=== PATIENT | male | born 1945 | race Caucasian/White ===

== ENCOUNTER 2020-09-02 12:28 | Day surgery (SDC) | payer OTHER, SELFPAY ==
--- NOTE | 2020-09-01 14:07 | HO.ANESPROP2 ---
Documented by User: Marcela Jones 09/01/20 14:29 HPI - Anesthesia Eval Consult details Narrative: 74yo M for Colonoscopy [facility] Past Medical History Medical History (Updated 09/01/20 @ 13:30 by Stephanie Morales, RN) Arthritis H/O paroxysmal supraventricular tachycardia HTN (hypertension) Hyperlipemia Marfan syndrome Surgical History Surgical History (Updated 09/01/20 @ 13:30 by Stephanie Morales, RN) Hx of colonoscopy Social History Social History Smoking Status: Former smoker Use of substances other than those prescribed or required for medical reasons: No Advance Directives: No Meds Allergies Allergy/AdvReac Type Severity Reaction Status Date / Time N.K.D.A. Allergy Unknown Uncoded 03/12/20 00:00 Home Medications Medication Instructions Recorded Confirmed Type amlodipine 09/01/20 09/01/20 History aspirin 09/01/20 History losartan 09/01/20 History simvastatin 09/01/20 History Exam Exam Date and Time: September 01, 2020 1407 Pertinent Lab Results Pertinent Lab Results: Laboratory Tests 05/27/20 05/27/20 13:27 13:27 WBC 6.4 Hgb 14.1 Hct 40.1 L Plt Count 200 Sodium 142 Potassium 3.9 Chloride 106 BUN 15 Creatinine 1.12 Narrative Narrative: Echo 2018: LV sys function is normal. EF 55-60%. mild calcification of AV. Mild MAC. Mild TR. No significant change prior to 2016. EKG 03/2020: NSR with PAC's, nonspecific ST changes Assessment and Plan Assessment Anesthesia Assessment: Chart Reviewed Documented by User: Debra Barriga 09/02/20 13:42 [facility] Past Medical History Medical History (Updated 09/01/20 @ 13:30 by Stephanie Morales RN) Arthritis H/O paroxysmal supraventricular tachycardia HTN (hypertension) Hyperlipemia Marfan syndrome Surgical History Surgical History (Updated 09/01/20 @ 13:30 by Stephanie Morales RN) Hx of colonoscopy Social History Social History Smoking Status: Former smoker Use of substances other than those prescribed or required for medical reasons: No Advance Directives: No Meds Allergies Allergy/AdvReac Type Severity Reaction Status Date / Time N.K.D.A. Allergy Unknown Uncoded 03/12/20 00:00 Home Medications Medication Instructions Recorded Confirmed Type amlodipine 09/01/20 09/01/20 History aspirin 09/01/20 History losartan 09/01/20 History simvastatin 09/01/20 History Exam Airway Mallampati Class: II (Left upper multipe implants) TM Dist: >3cm Neck ROM: Full Heart: RRR Lungs: CTA BL Assessment and Plan Assessment Anesthesia Assessment: Anesthesia Plan Discussed and Chart Reviewed Final Anesthetic Review NPO: Yes ASA Class: II Final Preanesthetic Review: Meds/Allgs Chart Reviewed and Consent Obtained/Reviewed Patient Risk: Intermediate Procedure Risk: Intermediate Anesthetic Plan Anesthetic Plan: MAC: Disposition: Standard PACU
[2020-09-02 12:43] VITALS: BMI 30.2
[2020-09-02 13:00] VITALS: BP 128/69; PULSE 83; RESP 18; TEMP 37.2; O2SAT 97
[2020-09-02] MEDS: Lactated Ringers 1,000 ML 100 ML IVCONT (13:13)
--- NOTE | 2020-09-02 14:15 | PM.OP ---
Brief Operative Note Date of procedure: 09/02/20 Pre-op diagnosis: screening Post-op diagnosis: other (coln polyps) Procedure: colonoscopy Surgeon: Fransisco Herrera Anesthesia: MAC Estimated blood loss (mL): 2 Pathology: other (polyps) Condition: stable Disposition: PACU
[2020-09-02 14:18] VITALS: BP 109/63; PULSE 62; RESP 16; TEMP 36.3; O2SAT 94
[2020-09-02 14:33] VITALS: BP 116/64; PULSE 56; RESP 18; O2SAT 97
--- NOTE | 2020-09-02 15:08 | HO.POSTANES ---
Post Anesthesia Evaluation Post Anesthesia Evaluation Vital Signs: Vital Signs Temp Pulse Resp BP Pulse Ox 09/02/20 14:33 97.4 F 56 18 116/64 97 09/02/20 14:18 97.4 F 62 16 109/63 94 09/02/20 13:00 98.9 F 83 18 128/69 97 Anesthesia: Monitored Mental Status: Awake Pain Control: Satisfactory Nausea/Vomiting: None Hydration: Adequate Anesthesia-Related Issues: No Anes. Related Issues
--- NOTE | 2020-09-03 00:57 | OP_ITS ---
SURGEON: Fransisco Herrera MD INDICATIONS: Colon cancer screening and prior history of adenomatous colon polyps. PREOPERATIVE DIAGNOSIS: POSTOPERATIVE DIAGNOSIS: PROCEDURE PERFORMED: Colonoscopy to the terminal ileum with biopsy and snare polypectomy. ESTIMATED BLOOD LOSS: COMPLICATIONS: ANESTHESIA: ASSISTANTS: SPECIMENS: MEDICATIONS: Monitored anesthesia care. DESCRIPTION OF PROCEDURE: History and physical performed. The risks and benefits of the procedure were explained to the patient. Informed consent was obtained. The patient was placed in the left lateral decubitus position. A digital rectal exam was performed and was found to be normal. The Olympus pediatric video colonoscope was introduced into the rectum and advanced to the cecum without difficulty. The cecum was identified by transillumination, palpation, and identification of ileocecal valve. Examination was performed. The scope was removed. He tolerated the procedure well and was taken to recovery area in stable condition. FINDINGS: The terminal ileum was examined and appeared normal. The visualized colonic mucosa was within normal limits without evidence of masses or ulcers. The quality of the prep was good. At 85 cm, a less than 5 mm polyp was removed with biopsy forceps. At 70 cm were two 6 mm polyps, which were snared and recovered via suction. No other polyps were identified. There was mild diverticulosis scattered throughout the colon. Retroflexed examination showed small internal hemorrhoids. IMPRESSION: Colon polyps. RECOMMENDATION: Follow up the biopsy results. MD RAMA Romano/TAMMIE / [id number] MTDD
== END 2020-09-02 15:20 | disposition home or self-care (01) ==
PROVIDERS: PCP Internal Medicine; Visit Provider Internal Medicine Gastroenterology
PROC: 0DJD8ZZ Inspection of Lower Intestinal Tract, Via Natural or Artificial Opening Endoscopic (ICD-10-PCS; CPT 45378; principal; 2020-09-02 13:40)
DX: Z12.11 Encounter for screening for malignant neoplasm of colon (principal); Z86.010 Personal history of colon polyps; D12.4 Benign neoplasm of descending colon; K57.30 Diverticulosis of large intestine without perforation or abscess without bleeding; K64.8 Other hemorrhoids; I10 Essential (primary) hypertension; E78.00 Pure hypercholesterolemia, unspecified; Q87.40 Marfan syndrome, unspecified; Z87.891 Personal history of nicotine dependence; Z79.82 Long term (current) use of aspirin; Z79.899 Other long term (current) drug therapy
CPT/HCPCS: 45385; 45380; 88305

== ENCOUNTER → 2021-04-13 13:44 | Outpatient (BNVA) | payer OTHER, SELFPAY | PROVIDERS: PCP Internal Medicine; Visit Provider Internal Medicine Cardiovascular Disease | DX: I47.1 Supraventricular tachycardia (principal); I10 Essential (primary) hypertension | CPT/HCPCS: 93005; 99212 ==

== ENCOUNTER → 2022-04-05 13:01 | Outpatient (BNVA) | payer MEDICARE, OTHER, SELFPAY | PROVIDERS: PCP Internal Medicine; Referring Provider Internal Medicine; Visit Provider Internal Medicine Cardiovascular Disease | DX: I47.1 Supraventricular tachycardia (principal); I10 Essential (primary) hypertension | CPT/HCPCS: 93005; 99212 ==

== ENCOUNTER → 2023-04-04 11:46 | Outpatient (BNVA) | payer MEDICARE, SELFPAY | PROVIDERS: PCP Internal Medicine; Referring Provider Internal Medicine; Visit Provider Internal Medicine Cardiovascular Disease | DX: I47.1 Supraventricular tachycardia (principal); I10 Essential (primary) hypertension; Z79.899 Other long term (current) drug therapy | CPT/HCPCS: 93005; 99212 ==

== ENCOUNTER → 2023-06-01 14:36 | Outpatient (REF) | payer MEDICARE, SELFPAY ==
--- NOTE | 2023-06-01 14:39 | CA_ITS ---
Transthoracic Echocardiogram Patient (Last, First, Middle): Bryson Hayward, Gender: Male Date of : 1945 Age: 77 Procedure Date: 06/01/2023 Procedure Type: Transthoracic Echocardiogram Location: OP Height: 190. cm Weight: 112.49 kg BSA: 2.40 m2 Heart Rate: 61 bpm BP: 125 / 80 mmHg Medical Lead: THONG Witt MD: Khanh Saravia MD Scrap Baller: Khanh Saravia MD Symptoms: I47.1 - Supraventricular tachycardia Study Quality: Adequate ECG Rhythm: Frequent atrial premature beats Conclusions: - 1. Normal LV systolic function with LVEF of 55-60% with mild LVH with grade 1 diastolic dysfunction 2. Normal cardiac valvular Dopplers 3. Mildly to moderately dilated ascending aorta at 4.4 cm 4. No pericardial effusion Findings Left Ventricle Normal left ventricular size and systolic function. There is mildly increased left ventricular wall thickness. The visually estimated ejection fraction is between 55-60%. Spectral Doppler is indicative of an impaired relaxation filling pattern. E/E prime ratio is <8, consistent with normal filling pressures. Evidence suggests grade I (mild) diastolic dysfunction. Peak GLS is -18.4%, within normal limits. Right Ventricle Normal right ventricular cavity size and systolic function. Atria The left atrium is likely dilated. Interatrial shunt cannot be excluded. The right atrium is normal in size. Aortic Valve There is mild calcification of the aortic valve. There is no aortic valve stenosis. There is no aortic valve regurgitation. Mitral Valve Likely normal mitral valve structure and function. There is trace mitral valve regurgitation. There is no mitral valve stenosis. Pulmonic Valve The pulmonic valve was not well visualized. Tricuspid Valve Likely normal tricuspid valve structure and function. There is trace tricuspid valve regurgitation. The right ventricular systolic pressure is normal. The right ventricular systolic pressure is 13 mmHg. Normal right atrial pressure. There is no evidence of pulmonary hypertension. Great Vessels The pulmonary artery was not well visualized. Venous The inferior vena cava is normal in size and collapses greater than 50% with inspiration. Pericardium/Pleural There is no evidence of pericardial effusion. Measurements 2D Linear Measurements IVSd: 1.39 0.6-0.9/0.6-1.0 cm LVIDd: 4.14 3.9-5.3/4.2-5.9 cm LVIDd Index: 1.73 2.4-3.2/2.2-3.1 cm/m2 LVIDs: 2.89 2.0-3.6 cm LVPWd: 1.22 0.7-1.1 cm LA Diam: 4.30 2.7-3.8/3.0-4.0 cm LAIDs Index: 1.79 1.5-2.3 cm/m2 LV Mass: 246.05 67-162/88-224 g LV Mass Index: 102.52 43-95/49-115 g/m2 LVOT Diam: 2.20 3.0+(-)1.3 cm 2D Systolic Function EF 4C: 53.60 >55% EF 2C: 63.30 >55% EF BiP: 58.80 >55% Mitral Valve MV Pk E: 0.42 MV PK A: 0.69 MV Decel Time: 421.00 E/A: 0.60 E'Lateral: 7.18 E'Medial: 5.44 E/E' Med: 7.80 E/E' Lat: 5.90 PHT: 123.00 MVA PHT: 1.79 Decel [place]: 1.12 Aortic Valve AoV Pk Augie: 1.13 AoV Mn Augie: 0.83 AoV VTI: 0.28 AoV Pk Grad: 5.00 Aov Mn Grad: 3.00 IVÁN Cont.VTI: 3.18 LVOT LVOT Pk Augie: 0.99 LVOT Mn Augie: 0.68 LVOT VTI: 0.23 LVOT Pk Grad: 4.00 LVOT Mn Grad: 2.00 LVOT Diam: 2.20 LVOT Area: 3.80 Diastolic Function MV Pk E: 0.42 MV Pk A: 0.69 E/A: 0.60 E'Medial: 5.44 E/E' Med: 7.80 E' Laterial: 7.18 E/E' Lat: 5.90 Right Ventricle TAPSE (mm): 16.60 TVS' Augie: 9.79 Tricuspid Valve TR Pk Augie: 1.60 TR Pk Grad: 10.00 RA Press: 3.00 RVSP: 13.00 Great Vessels Aorta Sinus of Valsalva: 4.20 2.0-3.5 cm Ao Asc: 4.40 2.1-3.4 cm Pulmonary Valve PV Pk Augie: 0.97 Peak PV Grad: 4.00 Updated in Other Vendor System with Status of Final Khanh Saravia MD electronically signed on 06/02/2023 11:29:19 AM with status of Final
== END ==
LOC: HO.CARD 14:36
PROVIDERS: PCP Internal Medicine; Visit Provider Internal Medicine Cardiovascular Disease
DX: I47.1 Supraventricular tachycardia (principal)
CPT/HCPCS: 93306; 93356

== ENCOUNTER → 2023-06-01 14:39 | Outpatient (BNV) | payer MEDICARE, SELFPAY | PROVIDERS: PCP Internal Medicine; Visit Provider Internal Medicine Cardiovascular Disease | DX: I47.1 Supraventricular tachycardia (principal); I51.9 Heart disease, unspecified | CPT/HCPCS: 93306 ==

== ENCOUNTER 2024-03-26 12:03 | Outpatient (AMB) | payer MEDICARE, SELFPAY ==
--- NOTE | 2024-03-26 12:36 | A.OFFVIS_ITS ---
Vital Signs 03/26/24 12:42 Height 6 ft 4 in Weight 249 lb 1.957 oz BMI 30.3 BP 110/70 Blood Pressure Location Lt brachial Position Sitting Pulse 51 Intake Visit Reasons: 1 yr f/up Intake Note: 1 year follow-up with ekg feeling good Form Presser Required: No Allergies N.K.D.A. Allergy (Unknown, Uncoded 03/12/20 00:00) Medication List - Last Reconciled 03/26/24 by Khanh Saravia MD amlodipine 10 mg PO DAILY atorvastatin 20 mg PO BEDTIME cholecalciferol (vitamin D3) 25 mcg PO DAILY losartan-hydrochlorothiazide 100-12.5 mg 1 tab PO DAILY metoprolol succinate ER 50 mg PO BID HPI Comments Details: Bryson comes for follow-up. He has no new symptoms. Echocardiogram done last May showed mildly to moderately dilated ascending aorta 4.4 cm. Strong family history of aortic dissection with father dying age of 45, 1 of his uncle dying in his 60s and his son dying in the 20s from aortic dissection. He has diagnose with Marfan syndrome. He is taking all his medications. Denies any cardiac symptoms whatsoever. Denies any symptoms of prolonged palpitation irregular heartbeat. Denies any symptoms exertional chest pain or shortness of breath. No orthopnea, PND, leg edema. He takes all his medications. Blood pressure at home usually in the 110 systolic range. [facility] Medical History Ascending aortic aneurysm Paroxysmal atrial tachycardia Marfan syndrome Hyperlipemia Arthritis HTN (hypertension) Surgical History Hx of colonoscopy Family History Father No problems noted. Mother No problems noted. Review of Systems Const Denies chills, Denies fatigue, Denies fever(s), Denies frequent falls, Denies weakness, Denies weight gain and Denies weight loss ENT Denies dizziness Card Denies chest pain, Denies leg edema, Denies lightheadedness, Denies palpitations, Denies dyspnea, Denies dyspnea on exertion, Denies orthopnea and Denies other (loss of consciousness) Resp Denies cough, Denies dyspnea and Denies dyspnea on exertion GI Denies hematochezia and Denies change in stool character Musc Denies abnormal gait, Denies muscle weakness, Denies numbness, Denies radiating pain into limb and Denies tingling Neuro Denies abnormal gait, Denies dizziness, Denies frequent falls, Denies numbness, Denies tingling and Denies weakness Endo Denies fatigue and Denies palpitations Physical Exam Vital Signs: Last Vital Signs Pulse 51 03/26/24 12:42 BP 110/70 03/26/24 12:42 BMI result Body Mass Index 30.3 Const General: cooperative, comfortable, no acute distress, alert and awake Nutritional Appearance: overweight Orientation/consciousness: patient oriented x3 Limitations: no limitations Neck Neck: Yes trachea midline, Yes supple and Yes no JVD Resp Effort & Inspection: normal respiratory effort Auscultation: clear to auscultation bilaterally Cardio Jugular venous distension: no JVD Palpation: normal PMI Rate: regular rate Rhythm: regular rhythm Heart sounds: S1 normal heart sound present and S2 normal heart sound present GI Auscultation: normal bowel sounds Skin General skin exam: no rashes or lesions noted Neuro General: patient oriented x3 and no focal motor deficits Extrem General: Yes no clubbing, cyanosis or edema Psych Appearance: grossly normal Office Procedures EKG Details: EKG shows sinus bradycardia with sinus arrhythmia with first-degree AV block otherwise normal EKG [id number], Complete Assessment & Plan Assessment & Plan (1) Ascending aortic aneurysm: Code(s): I71.21 - Aneurysm of the ascending aorta, without rupture Category: Medical Plan: Patient [id number] enlargement of ascending aorta consistent with the ascending aortic aneurysm at 4.4 cm. He does have Marfan syndrome and has strong family history for aortic dissection. His surgical threshold is at 5 cm. This was discussed with him. Follow-up echocardiogram in 3 months time. Would like to see him in the clinic after that. We discussed about management of ascending aortic aneurysm with medical therapy with aggressive blood pressure control which is currently well optimized. See below also advised to avoid sudden strenuous isometric exercise. Advised to seek emergency care if he has sudden significant chest pain. (2) Paroxysmal atrial tachycardia: Code(s): I47.1 - Supraventricular tachycardia Category: Medical Plan: Paroxysmal atrial tachycardia which has remained suppressed on metoprolol therapy. Continue the same. Importance of metoprolol therapy was discussed. Avoidance of stimulants was discussed advised to call me with any new symptoms. (3) HTN (hypertension): Code(s): I10 - Essential (primary) hypertension Category: Medical Plan: Longstanding hypertension with mild hypertensive heart disease without clinical congestive heart failure. Blood pressure is very well optimized on current regimen. Importance of good blood pressure control was discussed. He understands. Advised to monitor blood pressure at home maintain a log. Low- salt diet was discussed. Continue maintain activity level. Will follow up in the clinic in 3 months time, sooner p.r.n.. Thank you for allowing me to partake in his care Orders: Orders CA echo transthoracic complete 10 Weeks I71.21 - Aneurysm of the ascending aorta, without rupture Coding Level of Care Code Est Pt Level 4 (62472) Diagnoses Ascending aortic aneurysm I71.21 Paroxysmal atrial tachycardia I47.1 HTN (hypertension) I10 CPT Codes EKG - CPT: 09972-[id number], Complete ([id number])
[2024-03-26 12:42] VITALS: BP 110/70; PULSE 51; BMI 30.3
== END 2024-03-26 13:17 | disposition home or self-care (01) ==
PROVIDERS: Visit Provider Internal Medicine Cardiovascular Disease
DX: I71.21 Aneurysm of the ascending aorta, without rupture (principal); I47.10 Supraventricular tachycardia, unspecified; I10 Essential (primary) hypertension
CPT/HCPCS: 93010; 99214

== ENCOUNTER → 2024-03-26 12:03 | Outpatient (BNVA) | payer MEDICARE, SELFPAY | PROVIDERS: Visit Provider Internal Medicine Cardiovascular Disease | DX: I71.21 Aneurysm of the ascending aorta, without rupture (principal); I10 Essential (primary) hypertension; I47.19 Other supraventricular tachycardia | CPT/HCPCS: 93005; 99212 ==

== ENCOUNTER → 2024-06-04 07:38 | Outpatient (REF) | payer MEDICARE, SELFPAY ==
--- NOTE | 2024-06-04 07:42 | CA_ITS ---
Transthoracic Echocardiogram Patient (Last, First, Middle): Bryson Hayward, Gender: Male Date of : 1945 Age: 78 Procedure Date: 06/04/2024 Procedure Type: Transthoracic Echocardiogram Location: OP Height: 193.04 cm Weight: 112.49 kg BSA: 2.43 m2 Heart Rate: 68 bpm BP: 128 / 72 mmHg Drum Sander Setter: SB Referring MD: Khanh Saravia MD Symptoms: I71.21 - Aneurysm of the ascending aorta, without rupture Study Quality: Adequate ECG Rhythm: Sinus w occasional PVC Conclusions: - The left ventricular systolic function is normal. The calculated ejection fraction is 63% by biplane method. - Moderately increased right ventricular cavity size. - The right atrium is severely dilated. - No obvious valvular pathology seen on this study. - There is mild dilatation of the ascending aorta measuring 4.30 cm. Findings Left Ventricle Normal left ventricular cavity size. There is normal left ventricular wall thickness. The left ventricular systolic function is normal. The calculated ejection fraction is 63% by biplane method. There is no evidence of regional wall motion abnormalities. Diastolic function is normal for age. Right Ventricle Moderately increased right ventricular cavity size. There is normal right ventricular systolic function. Atria The left atrium is normal in size. The right atrium is severely dilated. Aortic Valve There is a normal trileaflet aortic valve. There is no aortic valve stenosis. There is no aortic valve regurgitation. Mitral Valve The mitral valve appears normal. There is trace mitral valve regurgitation. There is no mitral valve stenosis. Pulmonic Valve The pulmonic valve is likely normal. Tricuspid Valve Normal tricuspid valve structure. There is mild tricuspid valve regurgitation. There is no evidence of pulmonary hypertension. Great Vessels The aortic arch is normal in size. There is mild dilatation of the ascending aorta measuring 4.30 cm. Venous The inferior vena cava was not well visualized. Pericardium/Pleural There is no evidence of pericardial effusion. Prior Study Comparison Changes noted compared to prior study dated: 06/01/2023. see comment on right atrium and right ventricle. Recommendations, Care & Conclusions No obvious valvular pathology seen on this study. Measurements 2D Linear Measurements IVSd: 0.92 0.6-0.9/0.6-1.0 cm LVIDd: 5.58 3.9-5.3/4.2-5.9 cm LVIDd Index: 2.30 2.4-3.2/2.2-3.1 cm/m2 LVIDs: 4.03 2.0-3.6 cm LVPWd: 0.90 0.7-1.1 cm LA Diam: 4.50 2.7-3.8/3.0-4.0 cm LAIDs Index: 1.85 1.5-2.3 cm/m2 LV Mass: 240.91 67-162/88-224 g LV Mass Index: 99.14 43-95/49-115 g/m2 LVOT Diam: 2.40 3.0+(-)1.3 cm 2D Systolic Function EF 4C: 63.50 >55% EF 2C: 64.40 >55% EF BiP: 63.30 >55% Mitral Valve MV Pk E: 0.57 MV PK A: 0.58 MV Decel Time: 426.00 E/A: 1.00 E'Lateral: 10.00 E'Medial: 6.31 E/E' Med: 9.00 E/E' Lat: 5.70 PHT: 125.00 MVA PHT: 1.76 Decel Pepin: 1.34 Aortic Valve AoV Pk Augie: 1.16 AoV Pk Grad: 5.00 IVÁN: 3.75 LVOT LVOT Pk Augie: 0.92 LVOT Mn Augie: 0.64 LVOT VTI: 0.22 LVOT Pk Grad: 3.00 LVOT Mn Grad: 2.00 LVOT Diam: 2.40 LVOT Area: 4.52 Diastolic Function MV Pk E: 0.57 MV Pk A: 0.58 E/A: 1.00 E'Medial: 6.31 E/E' Med: 9.00 E' Laterial: 10.00 E/E' Lat: 5.70 Right Ventricle TAPSE (mm): 27.50 TVS' Augie: 12.70 Tricuspid Valve TR Pk Augie: 2.42 TR Pk Grad: 23.00 RA Press: 3.00 RVSP: 26.00 Great Vessels Aorta Sinus of Valsalva: 4.10 2.0-3.5 cm Ao Asc: 4.30 2.1-3.4 cm Ao Arch: 3.20 Pulmonary Valve PV Pk Augie: 0.81 Peak PV Grad: 3.00 Updated in Other Vendor System with Status of Final Saran Lowry MD electronically signed on 06/04/2024 3:36:19 PM with status of Final
== END ==
LOC: HO.CARD 07:38
PROVIDERS: PCP Internal Medicine; Visit Provider Internal Medicine Cardiovascular Disease
DX: I71.21 Aneurysm of the ascending aorta, without rupture (principal)
CPT/HCPCS: 93306

== ENCOUNTER → 2024-06-04 07:42 | Outpatient (BNV) | payer MEDICARE, SELFPAY | PROVIDERS: PCP Internal Medicine; Visit Provider Internal Medicine | DX: I36.1 Nonrheumatic tricuspid (valve) insufficiency (principal); I71.21 Aneurysm of the ascending aorta, without rupture | CPT/HCPCS: 93306 ==

== ENCOUNTER 2024-06-25 12:45 | Outpatient (AMB) | payer MEDICARE, SELFPAY ==
[2024-06-25 12:50] VITALS: BP 130/66; PULSE 57; BMI 30.4
--- NOTE | 2024-06-25 12:50 | A.OFFVIS_ITS ---
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 Allergy (Unknown, Uncoded 03/12/20 00:00) Medication List - Last Reconciled 06/25/24 by Khanh Saravia MD amlodipine 10 mg PO DAILY atorvastatin 20 mg PO BEDTIME cholecalciferol (vitamin D3) 25 mcg PO DAILY losartan-hydrochlorothiazide 100-12.5 mg 1 tab PO DAILY metoprolol succinate ER 50 mg PO BID HPI Comments Details: Bryson comes for follow-up. He has been doing very well from cardiac perspective. No cardiac symptoms. Denies any prolonged palpitation irregular heartbeat. No exertional chest pain. Recent echocardiogram shows stable ascending aortic aneurysm at 4.3 cm. His blood pressure is generally well controlled and measured at home all below systolic 130. Denies any shortness of breath, orthopnea, PND. No lightheadedness, syncope. Takes all his medications regularly. [facility] Medical History Failed total knee, right Ascending aortic aneurysm Paroxysmal atrial tachycardia Marfan syndrome Hyperlipemia Arthritis HTN (hypertension) Surgical History Hx of colonoscopy Family History Father No problems noted. Mother No problems noted. Review of Systems Const Denies chills, Denies fatigue, Denies fever(s), Denies frequent falls, Denies weakness, Denies weight gain and Denies weight loss ENT Denies dizziness Card Denies chest pain, Denies leg edema, Denies lightheadedness, Denies palpitations, Denies dyspnea and Denies dyspnea on exertion Resp Denies cough, Denies dyspnea and Denies dyspnea on exertion GI Denies hematochezia Musc Denies abnormal gait, Denies muscle weakness, Denies numbness, Denies radiating pain into limb and Denies tingling Neuro Denies abnormal gait, Denies dizziness, Denies frequent falls, Denies numbness, Denies tingling and Denies weakness Endo Denies fatigue and Denies palpitations Physical Exam Vital Signs: Last Vital Signs Pulse 57 06/25/24 12:50 BP 130/66 06/25/24 12:50 BMI result Body Mass Index 30.4 Const General: cooperative, comfortable, no acute distress, alert and awake Nutritional Appearance: overweight Orientation/consciousness: patient oriented x3 Limitations: no limitations Neck Neck: Yes trachea midline, Yes supple and Yes no JVD Resp Effort & Inspection: normal respiratory effort Auscultation: clear to auscultation bilaterally Cardio Jugular venous distension: no JVD Palpation: normal PMI Rate: regular rate Rhythm: regular rhythm Heart sounds: S1 normal heart sound present and S2 normal heart sound present GI Auscultation: normal bowel sounds Skin General skin exam: no rashes or lesions noted Neuro General: patient oriented x3 and no focal motor deficits Extrem General: Yes no clubbing, cyanosis or edema Psych Appearance: grossly normal Office Procedures EKG Details: EKG shows sinus bradycardia first-degree AV block at 57 beats per minute [id number], Complete Assessment & Plan Assessment & Plan (1) Ascending aortic aneurysm: Code(s): I71.21 - Aneurysm of the ascending aorta, without rupture Category: Medical Plan: Ascending aortic aneurysm which has remained stable with [id number] enlargement related to underlying Marfan syndrome. Patient has strong family history of aortic dissection but has done well over time. We discussed management of ascending aortic aneurysm and Marfan syndrome. Will continue to monitor annually by echocardiogram. Thresholds size for repair will be 5 cm. Continue aggressive blood pressure control. Currently well optimized on current therapy. Importance of good blood pressure control was discussed. Statin therapy can be continued. Advised to avoid sudden strenuous isometric exercise. Advised to seek emergency care for sudden-onset severe chest pain. (2) Paroxysmal atrial tachycardia: Code(s): I47.1 - Supraventricular tachycardia Category: Medical Plan: Paroxysmal atrial tachycardia as well as PACs and PVCs. No symptoms related to it. Overall controlled on metoprolol therapy. Avoidance of stimulants was discussed. No other pharmacotherapy is necessary at this point time. Will follow up in the clinic in 1 year's time after an echocardiogram. Thank you for allowing me to partake in his care Coding Level of Care Code Est Pt Level 4 (44634) Diagnoses Ascending aortic aneurysm I71.21 Paroxysmal atrial tachycardia I47.1 CPT Codes EKG - CPT: 80545-[id number], Complete ([id number])
== END 2024-06-25 13:22 | disposition home or self-care (01) ==
PROVIDERS: PCP Internal Medicine; Visit Provider Internal Medicine Cardiovascular Disease
DX: I71.21 Aneurysm of the ascending aorta, without rupture (principal); I47.10 Supraventricular tachycardia, unspecified
CPT/HCPCS: 93010; 99214

== ENCOUNTER → 2024-06-25 12:45 | Outpatient (BNVA) | payer MEDICARE, SELFPAY | PROVIDERS: PCP Internal Medicine; Visit Provider Internal Medicine Cardiovascular Disease | DX: I71.21 Aneurysm of the ascending aorta, without rupture (principal); I47.19 Other supraventricular tachycardia | CPT/HCPCS: 93005; 99212 ==

== ENCOUNTER → 2024-08-06 08:55 | Outpatient (REF) | payer MEDICARE, SELFPAY | LOC: HO.SL 08:55 | PROVIDERS: PCP Internal Medicine; Visit Provider Internal Medicine Cardiovascular Disease | DX: G47.33 Obstructive sleep apnea (adult) (pediatric) (principal); G47.39 Other sleep apnea | CPT/HCPCS: 95806 ==

== ENCOUNTER → 2024-08-06 09:11 | Outpatient (BNV) | payer MEDICARE, SELFPAY | PROVIDERS: PCP Internal Medicine; Visit Provider Internal Medicine | DX: G47.33 Obstructive sleep apnea (adult) (pediatric) (principal) | CPT/HCPCS: 95806 ==

== ENCOUNTER → 2025-06-20 07:34 | Outpatient (REF) | payer MEDICARE, SELFPAY ==
--- OUTSIDE RECORDS SUMMARY | 2025-06-20 02:36 | XMS_ITS | Continuity of Care Document ---
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 It does not include entries that were removed or entered in error. Problem Status Onset Date Problem Type Date of Resolution Comments Source Screening for malignant neoplasm of colon done (SNOMED CT 241361443567393) Active 003 Condition May 18, 2005 Entered By: MARIANNE HARLEY Comment: screening colonoscopy found diverticulosis only, 2002 [place] Allergic reaction to bee sting Active Condition [place] Allergic rhinitis * (ICD-9-CM 477.9) Active Condition [facility] Benign essential hypertension (SNOMED CT 0762856) Active Condition [place] Exposure to potentially hazardous substance Active Condition Feb 09, 2024 Entered By: SOPHIE GARZA Comment: DOREEN Screening Snomed Code connected 05/11/23 [facility] Gilbert's Disease Active Condition [facility] Hyperlipidemia (SNOMED CT 46040529) Active Condition [place] Marfan's syndrome (SNOMED CT 55488146) Active Condition Jul 28, 2010 Entered By: ELVIRA ANDRADE Comment: ECHO JUL 16: EF 60%; +LVH (Hypertensive Effect)Jul 28, 2010 Entered By: ELVIRA ANDRADE Comment: [facility] 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 [facility] Supraventricular arrhythmia Active Condition [place] Tear of medial cartilage or meniscus of knee, current (ICD-9-CM 836.0) Active Condition [place] EKG Inactive Condition 05/29/2017 Jun 08, 2 010 Entered By: ELVIRA ANDRADE Comment: EKG, NOV 2006: NSRAug 2009 Entered By: ELVIRA ANDRADE Comment: EKG, JUN 15: Sinus John [place] Impaired fasting glucose (SNOMED CT 507371919) Inactive Condition 05/29/[address] [place] [address] 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 [facility] Diagnosis: ICD-10-CM L82.1 Other seborrheic keratosis Active Diagnosis [facility] Diagnosis: ICD-10-CM Z13.89 Encounter for screening for other disorder Active Diagnosis [facility] Diagnosis: ICD-10-CM E66.9 Obesity, unspecified Active Diagnosis [place] Diagnosis: ICD-10-CM Z77.29 Contact with and exposure to other hazardous substances Active Diagnosis [facility] Medications Combined list of outpatient medications from Department of Defense and [facility] Affairs facilities.Medications provided include 1) outpatient medications from the last 15 months, and 2) patient-reported medications. Medication Details Route Status Patient Instructions Prescription Expires Prescription Number Last Dispense Date Ordering Provider Order Date Order Qty Source AMLODIPINE BESYLATE 10MG TAB TAKE ONE TABLET BY MOUTH ONCE DAILY FOR HEART/BL OOD PRESSURE . DO NOT TAKE WITH GRAPEFRU IT JUICE ORAL ACTIVE 05/21/2026 [id number] JENNIFFER HURD 2024 90 [place] AMLODIPINE BESYLATE 10MG TAB TAKE ONE TABLET BY MOUTH ONCE DAILY FOR HEART/BL OOD PRESSURE . DO NOT TAKE WITH GRAPEFRU IT JUICE ORAL DISCONT INUED 05/15/2025 [id number] 5 JENNIFFER HURD 2023 90 [place] AMLODIPINE BESYLATE 10MG TAB TAKE ONE TABLET BY MOUTH EVERY DAY ORAL ACTIVE LESIA GODWIN 2017 Sharifa RUELAS DEPT OF [facility] AMOXICILLIN TRIHYDRATE 500MG CAP TAKE FOUR CAPSULES BY MOUTH DIRECTED BY PROVIDER 1 HOUR PRIOR TO PROCEDUR E ORAL 09/19/2024 [id number] ELIOT TRIPLETT 2023 20 [place] ASPIRIN 325MG TAB,EC TAKE ONE TABLET BY MOUTH EVERY DAY ORAL ACTIVE LESIA GODWIN Manny 2017 Sharifa RUELAS DEPT OF [facility] ATORVASTATI N CA 40MG TAB TAKE ONE-HALF TABLET BY MOUTH ONCE DAILY FOR CHOLESTE ROL ORAL ACTIVE 05/21/2026 [id number] 5 JENNIFFER HURD 2024 45 [place] ATORVASTATI N CA 40MG TAB TAKE ONE-HALF TABLET BY MOUTH ONCE DAILY FOR CHOLESTE ROL ORAL DISCONT INUED 05/15/2025 [id number] 5 JENNIFFER HURD 2023 45 [place] CHOLECALCIF CAMI 25MCG (1,000UNIT) TAB TAKE ONE TABLET BY MOUTH ONCE DAILY ORAL ACTIVE JENNIFFER HURD 2020 [place] EPINEPHRINE (EQV-EPI-PE N) 0.3MG/0.3ML INJECTOR INJECT DIRECTED INTRAMUS CULARLY EVERY 5 MINUTES NEEDED FOR LIFE THREATEN ING ALLERGIC REACTION INTRAM USCULA R ACTIVE 05/21/2026 [id number] 5 JENNIFFER HURD 2024 2 [place] EPINEPHRINE (EQV-EPI-PE N) 0.3MG/0.3ML INJECTOR INJECT DIRECTED INTRAMUS CULARLY EVERY 5 MINUTES NEEDED FOR LIFE THREATEN ING ALLERGIC REACTION INTRAM USCULA R DISCONT INUED 05/15/2025 [id number] JENNIFFER HURD M 2023 2 [place] FLUTICASONE PROPIONATE 50MCG/SPRAY SOLN,NASAL, 16GM INSTILL 1 SPRAY INTO EACH NOSTRIL AT BEDTIME FOR NASAL IRRITATI ON/INFLA MMATION NASAL ACTIVE 05/21/2026 [id number] JENNIFFER HURD M 2024 1 [place] HYDROCHLORO THIAZIDE 12.5MG/LOSA RTAN POTASSIUM 100MG TAB TAKE 1 TABLET BY MOUTH ONCE DAILY ORAL ACTIVE 05/21/2026 [id number] 5 JENNIFFER HURD M 2024 90 [place] HYDROCHLORO THIAZIDE 12.5MG/LOSA RTAN POTASSIUM 100MG TAB TAKE 1 TABLET BY MOUTH ONCE DAILY ORAL DISCONT INUED 05/15/2025 [id number] JENNIFFER HURD M 2023 90 [place] LOSARTAN POTASSIUM 100MG TAB TAKE ONE TABLET BY MOUTH EVERY DAY ORAL ACTIVE SHEAR,LESIA HAEL P 2017 Sharifa RUELAS DEPT OF [facility] METOPROLOL SUCCINATE 100MG TAB,SA TAKE ONE-HALF TABLET BY MOUTH EVERY DAY ORAL ACTIVE SHEAR,LESIA HAEL P 2017 Sharifa RUELAS DEPT OF [facility] METOPROLOL SUCCINATE 50MG TAB,SA TAKE ONE TABLET BY MOUTH TWICE DAILY FOR BLOOD PRESSURE /HEART ORAL ACTIVE 05/21/2026 [id number] 5 JENNIFFER HURD M 2024 180 [place] METOPROLOL SUCCINATE 50MG TAB,SA TAKE ONE TABLET BY MOUTH TWICE DAILY FOR BLOOD PRESSURE /HEART ORAL DISCONT INUED 05/15/2025 [id number] 5 JENNIFFER HURD M 2023 180 [place] SIMVASTATIN 40MG TAB TAKE ONE TABLET BY MOUTH DAILY AT BEDTIME ORAL ACTIVE SHEAR,LESIA HAEL P 2017 Sharifa RUELAS DEPT OF [facility] SODIUM CHLORIDE 0.65% SOLN,NASAL SPRAY INSTILL 2 SPRAYS INTO EACH NOSTRIL EVERY 4 HOURS NEEDED FOR STUFFY NOSE NASAL ACTIVE 05/21/2026 [id number] JENNIFFER HURD M 2024 45 [place] TAMSULOSIN HCL 0.4MG CAP TAKE ONE CAPSULE BY MOUTH ONCE DAILY ORAL SUSPEND ED 05/21/2026 [id number] 5 JENNIFFER HURD M 2024 90 [facility] IELD TAMSULOSIN HCL 0.4MG CAP TAKE ONE CAPSULE BY MOUTH ONCE DAILY ORAL DISCONT INUED 05/07/2026 [id number] JENNIFFER HURD M 2024 90 [facility] IELD TAMSULOSIN HCL 0.4MG CAP TAKE ONE CAPSULE BY MOUTH ONCE DAILY ORAL [facility] 11/02/2025 [id number] ELIE DINH R 2023 90 [facility] IELD TAMSULOSIN HCL 0.4MG CAP TAKE ONE CAPSULE BY MOUTH AT BEDTIME FOR ENLARGED PROSTATE ORAL 08/30/2024 [id number] ELIE DINH R 2022 90 [facility] ZINC 50MG (FROM SULFATE) CAP TAKE 1 CAPSULE BY MOUTH ONCE DAILY ORAL ACTIVE JENNIFFER HURD [place] Allergies, Adverse Reactions, Alerts Combined list of allergies from Department of Defense and Veterans Affairs facilities. It does not include entries that were removed or entered in error. Substance Category Reaction Severity Reaction type Status Date Reported Comments Source BEE STINGS Propensity to adverse reaction (finding) Itching active 8 [facility] Immunizations Combined list of available immunizations from the Department of Defense and Veterans Affairs facilities. 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 Source PNEUMOCOCCAL POLYSACCHARID E PPV23 2022 [place] LEFT DELTO ID [id number] 33 complet ed [facility] COVID-19 (PFIZER), MRNA, LNP-S, BIVALENT BOOSTER, PF, 30 MCG/0.3 ML DOSE 1 2021 300 complet ed [facility] INFLUENZA, UNSPECIFIED FORMULATION 2021 88 complet ed [facility] COVID-19 (MODERNA), MRNA, LNP-S, PF, 100 MCG/0.5ML DOSE OR 50 MCG/0.25ML DOSE 3 2020 207 complet ed [facility] INFLUENZA VACCINE, QUADRIVALENT, ADJUVANTED 2020 205 complet ed [place] TDAP 2020 115 complet ed [place] COVID-19 (MODERNA), MRNA, LNP-S, PF, 100 MCG/0.5 ML DOSE 2 2020 207 complet ed [facility] COVID-19 (MODERNA), MRNA, LNP-S, PF, 100 MCG/0.5 ML DOSE 1 2020 207 complet ed [facility] ZOSTER RECOMBINANT 2 2019 187 complet ed [place] ZOSTER RECOMBINANT 1 2019 187 complet ed [place] INFLUENZA, SEASONAL, INJECTABLE 2017 141 complet ed [facility] INFLUENZA, SEASONAL, INJECTABLE 2016 141 complet ed [facility] [facility] INFLUENZA, UNSPECIFIED FORMULATION 2016 88 complet ed Sharifa RUELAS DEPT OF [facility] FLU,3 YRS (HISTORICAL) 2015 88 complet ed Site: Left Deltoid [place] ZOSTER (SHINGLES) (HISTORICAL) 2015 121 complet ed Proximal Right Arm [place] FLU,3 YRS (HISTORICAL) 2014 88 complet ed Site: Right Deltoid [place] PNEUMOCOCCAL CONJUGATE PCV 13 2014 133 complet ed [place] FLU,3 YRS (HISTORICAL) 2013 88 complet ed Site: Left Deltoid [place] FLU,3 YRS (HISTORICAL) 2012 88 complet ed Site: Right Deltoid [place] PNEUMOCOCCAL, UNSPECIFIED FORMULATION 2012 109 complet ed [place] PNEUMOCOCCAL POLYSACCHARID E PPV23 2012 33 complet ed Sharifa RUELAS DEPT [facility] FLU,3 YRS (HISTORICAL) 2011 88 complet ed Site: Left Deltoid [place] FLU,3 YRS (HISTORICAL) 2010 88 complet ed [facility] DTAP, UNSPECIFIED FORMULATION 2010 107 complet ed Site: Left Deltoid [place] FLU,3 YRS (HISTORICAL) 2008 88 complet ed [facility] FLU,3 YRS (HISTORICAL) 2007 88 complet ed Site: Left Deltoid [place] FLU,3 YRS (HISTORICAL) 2007 88 complet ed [facility] FLU,3 YRS (HISTORICAL) 2006 88 complet ed Site: Right Deltoid [place] PNEUMOCOCCAL, UNSPECIFIED FORMULATION 2006 109 complet ed [place] FLU,3 YRS (HISTORICAL) 2006 KATH MANCINI 88 complet ed [place] Results Combined list of recent chemistry, hematology and other laboratory results from Department of Defense and Veterans Affairs, ranging from 15 months to all on record, depending upon the facility. Order Name Results Value Reference Range Date Interpretation Specimen Comments Source PSA PROSTATE SPECIFIC AG [MASS/VOLUM E] IN SERUM OR PLASMA BY IMMUNOASSAY 13.4 ng/mL 0 - 4 05/13 H Specimen Type: SERUM No comment entered. Ordering Provider: FARZANEH GONZALES Report Released Date/Time: May 13, 2025 10:35 AM Reporting Lab: [facility] [address] [address] Performing Lab: [facility] [address] [address] [facility] LIPID PANEL FASTING CHOLESTEROL [MASS/VOLUM E] IN SERUM OR PLASMA 115 mg/dL 05/13 Specimen Type: SERUM No comment entered. Ordering Provider: FARZANEH GONZALES Report Released Date/Time: May 13, 2025 08:18 AM Reporting Lab: [facility] [address] [address] Performing Lab: [address] [address] [place] LIPID PANEL FASTING TRIGLYCERID E [MASS/VOLUM E] IN SERUM OR PLASMA 84 mg/dL 0 - 150 05/13 Specimen Type: SERUM No comment entered. Ordering Provider: FARZANEH GONZALES Report Released Date/Time: May 13, 2025 08:18 AM Reporting Lab: [facility] [address] [address] Performing Lab: [facility] [address] [address] [place] LIPID PANEL FASTING CHOLESTEROL IN LDL [MASS/VOLUM E] IN SERUM OR PLASMA BY CALCULATION 58 mg/dL 0 - 129 05/13 Specimen Type: SERUM No comment entered. Ordering Provider: FARZANEH GONZALES Report Released Date/Time: May 13, 2025 08:18 AM Reporting Lab: [address] [address] Performing Lab: [facility] [address] [address] [place] LIPID PANEL FASTING CHOLESTEROL .TOTAL/CHOL ESTEROL IN HDL [MASS RATIO] IN SERUM OR PLASMA 2.9 05/13 Specimen Type: SERUM No comment entered. Ordering Provider: FARZANEH GONZALES Report Released Date/Time: May 13, 2025 08:18 AM Reporting Lab: [facility] [address] Performing Lab: [facility] [address] [place] LIPID PANEL FASTING CHOLESTEROL IN HDL [MASS/VOLUM E] IN SERUM OR PLASMA 40 mg/dL 40 05/13 Specimen Type: SERUM No comment entered. Ordering Provider: FARZANEH GONZALES Report Released Date/Time: May 13, 2025 08:18 AM Reporting Lab: [facility] [address] [address] Performing Lab: [facility] [place] [place] [address] [place] BASIC METABOLIC PANEL (fasting) UREA NITROGEN [MASS/VOLUM E] IN SERUM OR PLASMA 18 mg/dL 8 - 26 05/13 Specimen Type: SERUM No comment entered. Ordering Provider: FARZANEH GONZALES Report Released Date/Time: May 13, 2025 08:18 AM Reporting Lab: [facility] [address] [address] Performing Lab: [facility] [address] [address] [place] BASIC METABOLIC PANEL (fasting) GLUCOSE [MASS/VOLUM E] IN SERUM OR PLASMA 101 mg/dL 65 - 100 05/13 H Specimen Type: SERUM No comment entered. Ordering Provider: FARZANEH GONZALES Report Released Date/Time: May 13, 2025 08:18 AM Reporting Lab: [facility] [address] [address] Performing Lab: [facility] [address] [place] BASIC METABOLIC PANEL (fasting) SODIUM [MOLES/VOLU ME] IN SERUM OR PLASMA 141 mmol/L 136 - 145 05/13 Specimen Type: SERUM No comment entered. Ordering Provider: FARZANEH GONZALES Report Released Date/Time: May 13, 2025 08:18 AM Reporting Lab: [facility] [address] [address] Performing Lab: [facility] [address] [place] BASIC METABOLIC PANEL (fasting) POTASSIUM [MOLES/VOLU ME] IN SERUM OR PLASMA 4.5 mmol/L 3.5 - 5.1 05/13 Specimen Type: SERUM No comment entered. Ordering Provider: FARZANEH GONZALES Report Released Date/Time: May 13, 2025 08:18 AM Reporting Lab: [facility] [address] [address] Performing Lab: [facility] [address] [address] [place] BASIC METABOLIC PANEL (fasting) CHLORIDE [MOLES/VOLU ME] IN SERUM OR PLASMA 105 mmol/L 98 - 107 05/13 Specimen Type: SERUM No comment entered. Ordering Provider: FARZANEH GONZALES Report Released Date/Time: May 13, 2025 08:18 AM Reporting Lab: [facility] [address] [address] Performing Lab: [address] [address] [place] BASIC METABOLIC PANEL (fasting) CARBON DIOXIDE, TOTAL [MOLES/VOLU ME] IN SERUM OR PLASMA 28 meq/L 23 - 31 05/13 Specimen Type: SERUM No comment entered. Ordering Provider: FARZANEH GONZALES Report Released Date/Time: May 13, 2025 08:18 AM Reporting Lab: [facility] [address] [address] Performing Lab: [address] [address] [place] BASIC METABOLIC PANEL (fasting) CALCIUM [MASS/VOLUM E] IN SERUM OR PLASMA 8.7 mg/dL 8.8 - 10 05/13 L Specimen Type: SERUM No comment entered. Ordering Provider: FARZANEH GONZALES Report Released Date/Time: May 13, 2025 08:18 AM Reporting Lab: [facility] [address] [address] Performing Lab: [address] [address] [place] BASIC METABOLIC PANEL (fasting) CREATININE [MASS/VOLUM E] IN SERUM OR PLASMA 1.22 mg/dL 0.72 - 1.25 05/13 Specimen Type: SERUM No comment entered. Ordering Provider: FARZANEH GONZALES Report Released Date/Time: May 13, 2025 08:18 AM Reporting Lab: [facility] [address] [address] Performing Lab: [address] [address] [place] BASIC METABOLIC PANEL (fasting) GLOMERULAR FILTRATION RATE/1.73 SQ M.PREDICTED [VOLUME RATE/AREA] IN SERUM, PLASMA OR BLOOD BY CREATININE- BASED FORMULA (CKD-EPI 2020) 60 mL/min 60 05/13 Specimen Type: SERUM No comment entered. Ordering Provider: FARZANEH GONZALES Report Released Date/Time: May 13, 2025 08:18 AM Reporting Lab: [facility] [address] [address] Performing Lab: [address] [address] [place] LIVER FUNCTION PROTEIN [MASS/VOLUM E] IN SERUM OR PLASMA 6.7 g/dL 6.4 - 8.3 05/13 Specimen Type: SERUM No comment entered. Ordering Provider: FARZANEH GONZALES Report Released Date/Time: May 13, 2025 08:18 AM Reporting Lab: [facility] [address] [address] Performing Lab: [address] [address] [place] LIVER FUNCTION ALBUMIN [MASS/VOLUM E] IN SERUM OR PLASMA BY BROMOCRESOL PURPLE (BCP) DYE BINDING METHOD 4.4 g/dL 3.2 - 4.6 05/13 Specimen Type: SERUM No comment entered. Ordering Provider: FARZANEH GONZALES Report Released Date/Time: May 13, 2025 08:18 AM Reporting Lab: [facility] [address] [address] Performing Lab: [address] [address] [place] LIVER FUNCTION ALKALINE PHOSPHATASE [ENZYMATIC ACTIVITY/VO LUME] IN SERUM OR PLASMA 72 U/L 40 - 150 05/13 Specimen Type: SERUM No comment entered. Ordering Provider: FARZANEH GONZALES Report Released Date/Time: May 13, 2025 08:18 AM Reporting Lab: [facility] [address] [address] Performing Lab: [facility] [address] [address] [place] LIVER FUNCTION ASPARTATE AMINOTRANSF ERASE [ENZYMATIC ACTIVITY/VO LUME] IN SERUM OR PLASMA BY WITH P-5'-P 15 U/L 5 - 34 05/13 Specimen Type: SERUM No comment entered. Ordering Provider: FARZANEH GONZALES Report Released Date/Time: May 13, 2025 08:18 AM Reporting Lab: [address] [address] Performing Lab: [facility] [address] [address] [place] LIVER FUNCTION ALANINE AMINOTRANSF ERASE [ENZYMATIC ACTIVITY/VO LUME] IN SERUM OR PLASMA BY WITH P-5'-P 9 U/L 0 - 55 05/13 Specimen Type: SERUM No comment entered. Ordering Provider: FARZANEH GONZALES Report Released Date/Time: May 13, 2025 08:18 AM Reporting Lab: [facility] [address] [address] Performing Lab: [facility] [address] [place] FUNCTION BILIRUBIN.T OTAL [MASS/VOLUM E] IN SERUM OR PLASMA 2.0 mg/dL 0.2 - 1.2 05/13 H Specimen Type: SERUM No comment entered. Ordering Provider: FARZANEH GONZALES Report Released Date/Time: May 13, 2025 08:18 AM Reporting Lab: [facility] [address] [address] Performing Lab: [facility] [place] [facility] [address] [address] [place] LIVER FUNCTION BILIRUBIN.D IRECT [MASS/VOLUM E] IN SERUM OR PLASMA 0.4 mg/dL 0 - 0.5 05/13 Specimen Type: SERUM No comment entered. Ordering Provider: FARZANEH GONZALES Report Released Date/Time: May 13, 2025 08:18 AM Reporting Lab: [facility] [place] [facility] [address] [address] Performing Lab: [facility] [address] [address] [place] HEMOGLOBI N A1C PANEL HEMOGLOBIN A1C/HEMOGLO BIN.TOTAL IN BLOOD 5.5 4.0 - 5.6 05/13 Specimen Type: BLOOD Comment: Values obtained from A1C measurement s can vary. For atypical A1C assays, a reported value of 7.0 could actually be between 6.72 and 7.28 if measured by a reference method. A reported value of 9.0 could actually be between 8.73 and 9.27. Ref: http://www. ngsp.org/[place] Pdata.asp Ordering Provider: FARZANEH GONZALES Report Released Date/Time: May 13, 2025 08:18 AM Reporting Lab: [facility] [address] Performing Lab: [facility] [address] [place] TSH THYROTROPIN [UNITS/VOLU ME] IN SERUM OR PLASMA BY DETECTION LIMIT <= 0.005 MIU/L 1.53 u[IU]/ mL 0.35 - 4.94 05/13 Specimen Type: SERUM No comment entered. Ordering Provider: FARZANEH GONZALES Report Released Date/Time: May 13, 2025 08:18 AM Reporting Lab: [facility] [address] [address] Performing Lab: [facility] [place] [address] [place] CBC AND DIFF (AUTO) LEUKOCYTES [#/VOLUME] IN BLOOD BY AUTOMATED COUNT 5.49 10*3/u L 4.50 - 11.00 05/13 Specimen Type: BLOOD No comment entered. Ordering Provider: FARZANEH GONZALES Report Released Date/Time: May 13, 2025 08:18 AM Reporting Lab: [facility] [place] [address] [address] Performing Lab: [facility] [place] [address] [address] [place] CBC AND DIFF (AUTO) ERYTHROCYTE S [#/VOLUME] IN BLOOD BY AUTOMATED COUNT 4.04 10*6/u L 4.23 - 5.66 05/13 L Specimen Type: BLOOD No comment entered. Ordering Provider: FARZANEH GONZALES Report Released Date/Time: May 13, 2025 08:18 AM Reporting Lab: [facility] [place] [address] [address] Performing Lab: [facility] [place] [address] [address] [place] CBC AND DIFF (AUTO) HEMOGLOBIN [MASS/VOLUM E] IN BLOOD 13.3 g/dL 12.8 - 17 05/13 Specimen Type: BLOOD No comment entered. Ordering Provider: FARZANEH GONZALES Report Released Date/Time: May 13, 2025 08:18 AM Reporting Lab: [facility] [place] [address] [address] Performing Lab: [facility] [place] [address] [address] [place] CBC AND DIFF (AUTO) HEMATOCRIT [VOLUME FRACTION] OF BLOOD BY AUTOMATED COUNT 38.3 39.2 - 50.4 05/13 L Specimen Type: BLOOD No comment entered. Ordering Provider: FARZANEH GONZALES Report Released Date/Time: May 13, 2025 08:18 AM Reporting Lab: [facility] [place] [facility] [address] [address] Performing Lab: [facility] [address] [address] [place] CBC AND DIFF (AUTO) MCV [ENTITIC VOLUME] BY AUTOMATED COUNT 94.8 fL 82 - 99 05/13 Specimen Type: BLOOD No comment entered. Ordering Provider: FARZANEH GONZALES Report Released Date/Time: May 13, 2025 08:18 AM Reporting Lab: [facility] [address] [phone] Performing Lab: [facility] [address] [place] CBC AND DIFF (AUTO) MCHC [MASS/VOLUM E] BY AUTOMATED COUNT 34.7 g/dL 30.8 - 35.1 05/13 Specimen Type: BLOOD No comment entered. Ordering Provider: FARZANEH GONZALES Report Released Date/Time: May 13, 2025 08:18 AM Reporting Lab: [facility] [address] [phone] Performing Lab: [facility] [address] [address] [place] CBC AND DIFF (AUTO) PLATELETS [#/VOLUME] IN BLOOD BY AUTOMATED COUNT 189 10*3/u L 140 - 360 05/13 Specimen Type: BLOOD No comment entered. Ordering Provider: FARZANEH GONZALES Report Released Date/Time: May 13, 2025 08:18 AM Reporting Lab: [facility] [facility] [address] [address] Performing Lab: [facility]ENTERUSE[address] [address] [place] CBC AND DIFF (AUTO) PLATELET MEAN VOLUME [ENTITIC VOLUME] IN BLOOD BY AUTOMATED COUNT 11.7 fL 9.2 - 12.4 05/13 Specimen Type: BLOOD No comment entered. Ordering Provider: FARZANEH GONZALES Report Released Date/Time: May 13, 2025 08:18 AM Reporting Lab: [facility] [place] [address] [address] Performing Lab: [facility] [place] [address] [address] [place] CBC AND DIFF (AUTO) ERYTHROCYTE DISTRIBUTIO N WIDTH [RATIO] BY AUTOMATED COUNT 12.8 12.0 - 16.0 05/13 Specimen Type: BLOOD No comment entered. Ordering Provider: FARZANEH GONZALES Report Released Date/Time: May 13, 2025 08:18 AM Reporting Lab: [facility] [place] [address] [address] Performing Lab: [facility] [place] [address] [address] [place] CBC AND DIFF (AUTO) MONOCYTES [#/VOLUME] IN BLOOD BY AUTOMATED COUNT 0.68 10*3/u L 0.30 - 1.10 05/13 Specimen Type: BLOOD No comment entered. Ordering Provider: FARZANEH GONZALES Report Released Date/Time: May 13, 2025 08:18 AM Reporting Lab: [facility] [place] [address] [address] Performing Lab: [facility] [place] [address] [address] [place] CBC AND DIFF (AUTO) MCH [ENTITIC MASS] BY AUTOMATED COUNT 32.9 pg 26.2 - 32.6 05/13 H Specimen Type: BLOOD No comment entered. Ordering Provider: FARZANEH GONZALES Report Released Date/Time: May 13, 2025 08:18 AM Reporting Lab: [facility] [place] [address] [address] Performing Lab: [facility] [place] [address] [address] [place] CBC AND DIFF (AUTO) NEUTROPHILS /100 LEUKOCYTES IN BLOOD BY AUTOMATED COUNT 55.2 43.7 - 75.8 05/13 Specimen Type: BLOOD No comment entered. Ordering Provider: FARZANEH GONZALES Report Released Date/Time: May 13, 2025 08:18 AM Reporting Lab: [facility] [place] [facility] [address] [address] Performing Lab: [facility] [place] [facility] [address] [address] [place] CBC AND DIFF (AUTO) LYMPHOCYTES /100 LEUKOCYTES IN BLOOD BY AUTOMATED COUNT 29.5 14.0 - 42.3 05/13 Specimen Type: BLOOD No comment entered. Ordering Provider: FARZANEH GONZALES Report Released Date/Time: May 13, 2025 08:18 AM Reporting Lab: [facility] [place] [facility] [address] [address] Performing Lab: [facility] [place] [address] [address] [place] CBC AND DIFF (AUTO) MONOCYTES/1 00 LEUKOCYTES IN BLOOD BY AUTOMATED COUNT 12.4 5.1 - 13.7 05/13 Specimen Type: BLOOD No comment entered. Ordering Provider: FARZANEH GONZALES Report Released Date/Time: May 13, 2025 08:18 AM Reporting Lab: [facility] [place] [facility] [address] [address] Performing Lab: [facility] [place] [facility] [address] [address] [place] CBC AND DIFF (AUTO) EOSINOPHILS /100 LEUKOCYTES IN BLOOD BY AUTOMATED COUNT 2.0 0.4 - 6.8 05/13 Specimen Type: BLOOD No comment entered. Ordering Provider: FARZANEH GONZALES Report Released Date/Time: May 13, 2025 08:18 AM Reporting Lab: [facility] [place] [facility] [address] [address] Performing Lab: [facility] [place] [address] [address] [place] CBC AND DIFF (AUTO) BASOPHILS/1 00 LEUKOCYTES IN BLOOD BY AUTOMATED COUNT 0.7 0.1 - 2.0 05/13 Specimen Type: BLOOD No comment entered. Ordering Provider: FARZANEH GONZALES Report Released Date/Time: May 13, 2025 08:18 AM Reporting Lab: [facility] [address] [address] Performing Lab: [facility] [place] [address] [place] CBC AND DIFF (AUTO) NEUTROPHILS [#/VOLUME] IN BLOOD BY AUTOMATED COUNT 3.03 10*3/u L 2.20 - 7.60 05/13 Specimen Type: BLOOD No comment entered. Ordering Provider: FARZANEH GONZALES Report Released Date/Time: May 13, 2025 08:18 AM Reporting Lab: [facility] [address] Performing Lab: [facility] [address] [address] [place] CBC AND DIFF (AUTO) LYMPHOCYTES [#/VOLUME] IN BLOOD BY AUTOMATED COUNT 1.62 10*3/u L 1.00 - 3.20 05/13 Specimen Type: BLOOD No comment entered. Ordering Provider: FARZANEH GONZALES Report Released Date/Time: May 13, 2025 08:18 AM Reporting Lab: [facility] [address] [address] Performing Lab: [facility] [address] [address] [place] CBC AND DIFF (AUTO) EOSINOPHILS [#/VOLUME] IN BLOOD BY AUTOMATED COUNT 0.11 10*3/u L 0.03 - 0.44 05/13 Specimen Type: BLOOD No comment entered. Ordering Provider: FARZAENH GONZALES Report Released Date/Time: May 13, 2025 08:18 AM Reporting Lab: [facility] [address] [address] Performing Lab: [facility] [place] [facility] [address] [address] [place] CBC AND DIFF (AUTO) BASOPHILS [#/VOLUME] IN BLOOD BY AUTOMATED COUNT 0.04 10*3/u L 0.01 - 0.13 05/13 Specimen Type: BLOOD No comment entered. Ordering Provider: FARZANEH GONZALES Report Released Date/Time: May 13, 2025 08:18 AM Reporting Lab: [facility] [place] [facility] [address] [address] Performing Lab: [facility] [address] [address] [place] CBC AND DIFF (AUTO) IMMATURE GRANULOCYTE S/100 LEUKOCYTES IN BLOOD BY AUTOMATED COUNT 0.2 0.0 - 0.7 05/13 Specimen Type: BLOOD No comment entered. Ordering Provider: FARZANEH GONZALES Report Released Date/Time: May 13, 2025 08:18 AM Reporting Lab: [facility] [place] [address] [address] Performing Lab: [facility] [place] [facility] [address] [address] [place] CBC AND DIFF (AUTO) IMMATURE GRANULOCYTE S [#/VOLUME] IN BLOOD BY AUTOMATED COUNT 0.01 10*3/u L 0.00 - 0.06 05/13 Specimen Type: BLOOD No comment entered. Ordering Provider: FARZANEH GONZALES Report Released Date/Time: May 13, 2025 08:18 AM Reporting Lab: [facility] [address] [address] Performing Lab: [facility] [address] [address] [place] CBC AND DIFF (AUTO) NUCLEATED ERYTHROCYTE S/100 LEUKOCYTES [RATIO] IN BLOOD BY AUTOMATED COUNT 0.0 0.0 - 0.0 05/13 Specimen Type: BLOOD No comment entered. Ordering Provider: FARZANEH GONZALES Report Released Date/Time: May 13, 2025 08:18 AM Reporting Lab: [facility] [place] [facility] [address] [address] Performing Lab: [facility] [address] [address] [place] CBC AND DIFF (AUTO) NUCLEATED ERYTHROCYTE S [#/VOLUME] IN BLOOD BY AUTOMATED COUNT 0.00 10*3/u L 0.00 - 0.00 05/13 Specimen Type: BLOOD No comment entered. Ordering Provider: FARZANEH GONZALES Report Released Date/Time: May 13, 2025 08:18 AM Reporting Lab: [facility] [address] [address] Performing Lab: [facility] [address] [address] [place] PSA PROSTATE SPECIFIC AG [MASS/VOLUM E] IN SERUM OR PLASMA 7.78 ng/mL 0.00 - 4.00 06/07 H Specimen Type: SERUM No comment entered. Ordering Provider: FARZANEH GONZALES Report Released Date/Time: May 14, 2024 11:57 AM Reporting Lab: [facility] [address] [address] Performing Lab: [facility] [address] [address] [place] BASIC METABOLIC PANEL (fasting) UREA NITROGEN [MASS/VOLUM E] IN SERUM OR PLASMA 17 mg/dL 7 - 25 05/06 Specimen Type: SERUM No comment entered. Ordering Provider: FARZANEH GONZALES Report Released Date/Time: May 01, 2024 10:09 AM Reporting Lab: [facility] [address] [address] Performing Lab: [facility] [address] [address] [place] BASIC METABOLIC PANEL (fasting) GLUCOSE [MASS/VOLUM E] IN SERUM OR PLASMA 97 mg/dL 65 - 100 05/06 Specimen Type: SERUM No comment entered. Ordering Provider: FARZANEH GONZALES Report Released Date/Time: May 01, 2024 10:09 AM Reporting Lab: [facility] [place] [facility] [address] [address] Performing Lab: [facility] [address] [address] [place] BASIC METABOLIC PANEL (fasting) SODIUM [MOLES/VOLU ME] IN SERUM OR PLASMA 141 mmol/L 135 - 145 05/06 Specimen Type: SERUM No comment entered. Ordering Provider: FARZANEH GONZALES Report Released Date/Time: May 01, 2024 10:09 AM Reporting Lab: [facility] [address] [address] Performing Lab: [facility] [address] [address] [place] BASIC METABOLIC PANEL (fasting) POTASSIUM [MOLES/VOLU ME] IN SERUM OR PLASMA 4.3 mmol/L 3.5 - 5.0 05/06 Specimen Type: SERUM No comment entered. Ordering Provider: FARZANEH GONZALES Report Released Date/Time: May 01, 2024 10:09 AM Reporting Lab: [facility] [place] [facility] [address] [address] Performing Lab: [facility] [address] [address] [place] BASIC METABOLIC PANEL (fasting) CHLORIDE [MOLES/VOLU ME] IN SERUM OR PLASMA 106 mmol/L 100 - 110 05/06 Specimen Type: SERUM No comment entered. Ordering Provider: FARZANEH GONZALES Report Released Date/Time: May 01, 2024 10:09 AM Reporting Lab: [facility] [place] [facility] [address] [address] Performing Lab: [facility] [place] [facility] [address] [address] [place] BASIC METABOLIC PANEL (fasting) CARBON DIOXIDE, TOTAL [MOLES/VOLU ME] IN SERUM OR PLASMA 25 meq/L 20 - 30 05/06 Specimen Type: SERUM No comment entered. Ordering Provider: FARZANEH GONZALES Report Released Date/Time: May 01, 2024 10:09 AM Reporting Lab: [address] [address] Performing Lab: [address] [address] [place] BASIC METABOLIC PANEL (fasting) CREATININE [MASS/VOLUM E] IN SERUM OR PLASMA 1.18 mg/dL 0.50 - 1.40 05/06 Specimen Type: SERUM No comment entered. Ordering Provider: FARZANEH GONZALES Report Released Date/Time: May 01, 2024 10:09 AM Reporting Lab: [address] [address] Performing Lab: [address] [address] [place] BASIC METABOLIC PANEL (fasting) GLOMERULAR FILTRATION RATE/1.73 SQ M.PREDICTED [VOLUME RATE/AREA] IN SERUM, PLASMA OR BLOOD BY CREATININE- BASED FORMULA (CKD-EPI 2020) 62 mL/min 60 05/06 Specimen Type: SERUM No comment entered. Ordering Provider: FARZANEH GONZALES Report Released Date/Time: May 01, 2024 10:09 AM Reporting Lab: [address] [address] Performing Lab: [address] [address] [place] LIPID PANEL FASTING CHOLESTEROL [MASS/VOLUM E] IN SERUM OR PLASMA 129 mg/dL 05/06 Specimen Type: SERUM No comment entered. Ordering Provider: FARZANEH GONZALES Report Released Date/Time: May 01, 2024 10:09 AM Reporting Lab: [place] [address] Performing Lab: [facility] [address] [address] [place] LIPID PANEL FASTING TRIGLYCERID E [MASS/VOLUM E] IN SERUM OR PLASMA 97 mg/dL 0 - 150 05/06 Specimen Type: SERUM No comment entered. Ordering Provider: FARZANEH GONZALES Report Released Date/Time: May 01, 2024 10:09 AM Reporting Lab: [facility] [address] [address] Performing Lab: [facility] [address] [address] [place] LIPID PANEL FASTING CHOLESTEROL IN LDL [MASS/VOLUM E] IN SERUM OR PLASMA BY CALCULATION 63 mg/dL 0 - 129 05/06 Specimen Type: SERUM No comment entered. Ordering Provider: FARZANEH GONZALES Report Released Date/Time: May 01, 2024 10:09 AM Reporting Lab: [facility] [address] [address] Performing Lab: [facility] [address] [place] LIPID PANEL FASTING CHOLESTEROL .TOTAL/CHOL ESTEROL IN HDL [MASS RATIO] IN SERUM OR PLASMA 2.7 05/06 Specimen Type: SERUM No comment entered. Ordering Provider: FARZANEH GONZALES Report Released Date/Time: May 01, 2024 10:09 AM Reporting Lab: [facility] [address] [address] Performing Lab: [facility] [address] [place] LIPID PANEL FASTING CHOLESTEROL IN HDL [MASS/VOLUM E] IN SERUM OR PLASMA 47 mg/dL 40 - 60 05/06 Specimen Type: SERUM No comment entered. Ordering Provider: FARZANEH GONZALES Report Released Date/Time: May 01, 2024 10:09 AM Reporting Lab: [facility] [place] [facility] [address] [address] Performing Lab: [facility] [place] [facility] [address] [address] [place] Vital Signs Combined list of inpatient and outpatient Vital Signs from Department of Defense and Veterans Affairs, ranging from 12 months to all on record, depending upon the facility. Vital Sign Value Date Comments Source SYSTOLIC BLOOD PRESSURE 128 06/10/20 25 09:48:11 [facility] [place] [facility] DIASTOLIC BLOOD PRESSURE 73 025 09:48:11 [facility] [place] [facility] PULSE OXIMETRY 96 % 06/10/2025 09:48:11 [facility] [place] [facility] WEIGHT 250.6 06/10/2025 09:48:11 [facility] [place] [facility] BMI 31 kg/m2 06/10/2025 09:48:11 [facility] [place] [facility] PAIN 0 06/10/2025 09:48:11 [facility] [place] [facility] TEMPERATURE 98 06/10/2025 09:48:11 [facility] [place] [facility] PULSE 71 06/10/2025 09:48:11 [facility] [place] [facility] RESPIRATION 18 06/10/2025 09:48:11 [facility] [place] [facility] SYSTOLIC BLOOD PRESSURE 132 05/20/20 25 08:57:23 [place] DIASTOLIC BLOOD PRESSURE 73 025 08:57:23 [place] PULSE OXIMETRY 99 % 05/20/2025 08:57:23 [place] WEIGHT 251.6 05/20/2025 08:57:23 [place] BMI 31 kg/m2 05/20/2025 08:57:23 [place] TEMPERATURE 97.7 05/20/2025 08:57:23 [place] PULSE 60 05/20/2025 08:57:23 [place] Encounters Combined list of: 1) Encounters from Department of Veterans Affairs facilities going backup to the last 18 months, not all [place] inpatient encounters are included; 2) Encounters from the Department of Defense facilities going backup to 280 months. Location Location Details Encounter Type Encounter Number Reason For Visit Attending Provider ADM Date DC Date Status Disposition Source [place] [facility] [place] [facility] Outpatient Encounter [id number] 05/10 [place] [facility] [place] [facility] Outpatient Encounter [id number] Diagnos is: ICD-10- CM E66.9 Obesity , unspeci fied VERÓNICA PERDUE 05/14 [facility] [place] [facility] Outpatient Encounter [id number] 06/04 [place] [facility] [place] [place] [facility] [place] [facility] Outpatient Encounter [id number] 06/07 [place] [facility] [place] [place] [facility] [place] [facility] NQHP OL DIG ASSMT&MGMT 5-10 [id number] Diagnos is: ICD-10- CM Z77.29 Contact with and exposur e to other hazardo us substan alla [place],CH RISTY A 05/05 [place] [facility] [place] [place] [facility] OFFICE O/P EST HI 40 MIN [id number] Diagnos is: ICD-10- CM E66.9 Obesity , unspeci fied VERÓNICA PERDUE 05/20 [facility] UNLISTED SPEC DERM SVC/PX [id number] Diagnos is: ICD-10- CM Z13.89 Encount er for screeni ng for other disorde r Arabella RAMOS 05/23 [facility] Outpatient Encounter [id number] Diagnos is: ICD-10- CM L82.1 Other seborrh eic keratos is SERA BONILLA 05/23 [facility] [place] [facility] Outpatient Encounter [id number] 05/23 [facility] [place] En[facility] [id number] 05/23 [facility] [place] En[facility] [id number] 05/30 [facility] [place] [place] [facility] OFF/OP CNSLTJ NEW/EST LOW 30 [id number] Diagnos is: ICD-10- CM D48.5 Neoplas m of uncerta in behavio r of skin GO,KM S 06/10 [facility] En[facility] [id number] 06/10 [facility] [place] En[facility] [id number] JULIAN JOHNS MD 06/12 [facility] [place] [place] [facility] Social History Combined list of available smoking, tobacco, and other social history from Department of Defense and Veterans Affairs facilities. Social History Type Response Date Comment Source Tobacco smoking status [facility] [place]-TOBACCO USE FORMER CIGARETTES 05/20/2025 [place] History of tobacco use [place]-TO[place]ACCO NEVER USED OTHER TYPE 05/20/2025 [place] History of tobacco use VA-TOBACCO FORMER USER 05/10/2024 [facility] [place] [place] [facility] History of tobacco use VA-TOBACCO FORMER USER 08/25/2022 [facility] [place] [facility] History of tobacco use VA-TOBACCO FORMER USER 08/24/2021 [place] History of tobacco use VA-TOBACCO QUIT 15 YRS OR MORE 06/04/2020 [place] History of tobacco use VA-TOBACCO QUIT 15 YRS OR MORE 05/29/2018 [place] History of tobacco use QUIT TOBACCO USE 1-7 YEARS AGO 05/29/2018 30 yrs ago [place] History of tobacco use LIFETIME NON TOBACCO USER 12/14/2017 Sharifa RUELAS DE[facility] OF [facility] History of tobacco use QUIT TOBACCO USE > 7 YEARS AGO 05/23/2017 [place] History of tobacco use QUIT TOBACCO USE > 7 YEARS AGO 02/23/2016 quit 35 yrs ago, smoker age [age], max 1.5 ppd [place] History of tobacco use QUIT TOBACCO USE > 7 YEARS AGO 06/08/2010 quit 27 years ago [place] History of tobacco use QUIT TOBACCO USE 1-7 YEARS AGO 05/01/2006 none for > 20 years [place] History of tobacco use HISTORY OF SMOKING 05/18/2005 [place] History of tobacco use HISTORY OF SMOKING 06/07/2004 Quit 22 years ago [place] Plan of Care List of future care activities from [facility] Affairs facilities. Additional future care activities may be listed in the Assessment and Plan section. Date/Time Care Activity Care Activity Detail Facili ty 05/20/2025 Consult Order COMMUNITY CARE-UROLOGY Cons Flour Mixer's Choice [place] Advance Directives List of completed, amended, or rescinded Advance Directives on record at Department of [facility] facilities. An actual copy of the Directive is not included. Date Advance Directive Provider Source 09/03/2021 ADVANCE DIRECTIVE LAURI BOWDEN
--- NOTE | 2025-06-20 07:36 | CA_ITS ---
Transthoracic Echocardiogram Patient (Last, First, Middle): Bryson Hayward, Gender: Male Date of : 1945 Age: 79 Procedure Date: 06/20/2025 Procedure Type: Transthoracic Echocardiogram Location: OP Height: 193. 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 There is mildly increased left ventricular wall thickness. The visually estimated ejection fraction is between 60-65%. - Normal right ventricular cavity size and systolic function. Findings Left Ventricle Normal left ventricular size and systolic function. There is mildly increased left ventricular wall thickness. The visually estimated ejection fraction is between 60-65%. Abnormal diastolic function is noted. Spectral Doppler is indicative of an impaired relaxation filling pattern. Normal left ventricular filling pressures. Right Ventricle Normal right ventricular cavity size and systolic function. Atria The left atrium is normal in size. The right atrium is normal in size. Aortic Valve Normal aortic valve structure and function. There is no aortic valve stenosis. There is trace (trivial) aortic valve regurgitation. Mitral Valve The mitral valve appears normal. There is trace mitral valve regurgitation. There is no mitral valve stenosis. Pulmonic Valve The pulmonic valve is normal. There is trace pulmonic valve regurgitation. Tricuspid Valve Normal tricuspid valve structure. There is trace tricuspid valve regurgitation. Normal right atrial pressure. There is no evidence of pulmonary hypertension. Great Vessels All visible segments of the aorta are normal in size. The visualized portions of the pulmonary artery and branches are normal. Venous The inferior vena cava is normal in size and collapses greater than 50% with inspiration. Pericardium/Pleural There is no evidence of pericardial effusion. Prior Study Comparison Changes noted compared to prior study dated: 06/04/2024. RV normal, RA size normal, ascending aorta 3.7 cm. Measurements 2D Linear Measurements IVSd: 1.11 0.6-0.9/0.6-1.0 cm LVIDd: 5.68 3.9-5.3/4.2-5.9 cm LVIDd Index: 2.34 2.4-3.2/2.2-3.1 cm/m2 LVIDs: 4.00 2.0-3.6 cm LVPWd: 1.15 0.7-1.1 cm Ao Root: 3.70 2.1-3.5 cm LA Diam: 4.40 2.7-3.8/3.0-4.0 cm LAIDs Index: 1.81 1.5-2.3 cm/m2 LV Mass: 330.01 67-162/88-224 g LV Mass Index: 135.81 43-95/49-115 g/m2 LVOT Diam: 2.20 3.0+(-)1.3 cm 2D Systolic Function EF 4C: 59.30 >55% EF 2C: 56.50 >55% EF BiP: 58.50 >55% Mitral Valve MV Pk E: 0.48 MV PK A: 0.61 MV Decel Time: 357.00 E/A: 0.80 E'Lateral: 7.07 E'Medial: 5.33 E/E' Med: 9.10 E/E' Lat: 6.80 PHT: 104.00 MVA PHT: 2.12 Decel [place]: 1.36 Aortic Valve AoV Pk Augie: 1.32 AoV Mn Augie: 0.93 AoV VTI: 0.35 AoV Pk Grad: 7.00 Aov Mn Grad: 4.00 IVÁN Cont.VTI: 2.62 LVOT LVOT Pk Augie: 0.98 LVOT Mn Augie: 0.60 LVOT VTI: 0.24 LVOT Pk Grad: 4.00 LVOT Mn Grad: 2.00 LVOT Diam: 2.20 LVOT Area: 3.80 Diastolic Function MV Pk E: 0.48 MV Pk A: 0.61 E/A: 0.80 E'Medial: 5.33 E/E' Med: 9.10 E' Laterial: 7.07 E/E' Lat: 6.80 Right Ventricle TAPSE (mm): 31.00 TVS' Augie: 9.00 Tricuspid Valve TR Pk Augie: 1.87 TR Pk Grad: 14.00 RA Press: 3.00 RVSP: 17.00 Great Vessels Aorta Ao Root-2D: 3.70 2.0-3.7 cm Ao Asc: 3.90 2.1-3.4 cm Pulmonary Veins Pulm Vein S/D 1.30 Pulmonary Valve PV Pk Augie: 0.94 Peak PV Grad: 4.00 Updated in Other Vendor System with Status of Final Fazal Ba MD electronically signed on 06/22/2025 2:21:57 PM with status of Final
--- OUTSIDE RECORDS SUMMARY | 2025-06-20 07:37 | XMS_ITS | Patient Health Record ---
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 the day before the procedure for 1 day 08/03/2020 Active amLODIPine Benzoate Active Simvastatin Active Losartan Potassium A ctive Immunizations Vaccine Route Administration Date Status Comme nts Influenza Unknown 07/21/2020 Administered Social History Tobacco Use: Social History Observation Description Date Details (start date - stop date) Former Smoker NA - NA Tobacco Use/Smoking Question Answer Notes Patient is a former smoker When did you start smoking? 14 years old When did you stop smoking? 37 years ago How long has it been since you last smoked? > 10 years Additional Findings: Tobacco Non-User Ex-cigaret te smoker Alcohol Screen Question Answer Notes Did you have a drink contain ing alcohol in the past year? Yes How often did you have a dri nk containing alcohol in the past year? 4 or more times a week (4 points) How many drinks did you have on a typical day when you were drinking in the past year? 1 or 2 drinks (0 point) How often did you have 6 or more drinks on one occasion in the past year? Less than monthly (1 point) Points 5 Interpretation Positive Problems Problem Type SNOMED Code ICD Code Onset Dates Problem Status W/U Status Risk Notes Problem 280121702 Colon cancer screening (Z12.11) Active confirmed Problem 679469592 Encounter for other preprocedural examination (Z01.818) Active confirmed Plan Of Treatment Future Test Test Name Order Date COLONOSCOPY 08/03/2020 Insurance Providers Payer Name Payer Address Payer Phone Subscriber Number Group Number Insured Name Patient Relationship to Insured Coverage Start Date Coverage End Date [employer] MEDICARE COMPLETE [address] [place] [address] [id number] CASTRO WEBB Self - patient is the insured Medical (General) History Medical History History ICD Code hypertension Arthritis elevated cholesterol Marfan's syndrome SVT/PAT Surgical History Surgery Date(Month/Year)
== END ==
LOC: HO.CARD 07:34
PROVIDERS: PCP Internal Medicine; Visit Provider Internal Medicine Cardiovascular Disease
DX: I71.21 Aneurysm of the ascending aorta, without rupture (principal)
CPT/HCPCS: 93306

== ENCOUNTER → 2025-06-20 07:36 | Outpatient (BNV) | payer MEDICARE, SELFPAY | PROVIDERS: PCP Internal Medicine; Visit Provider Internal Medicine Cardiovascular Disease | DX: I71.21 Aneurysm of the ascending aorta, without rupture (principal) | CPT/HCPCS: 93306 ==

== ENCOUNTER 2025-06-26 13:08 | Outpatient (AMB) | payer MEDICARE, SELFPAY ==
--- OUTSIDE RECORDS SUMMARY | 2025-06-26 08:20 | XMS_ITS | Continuity of Care Document ---
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 It does not include entries that were removed or entered in error. Problem Status Onset Date Problem Type Date of Resolution Comments Source Screening for malignant neoplasm of colon done (SNOMED CT 078637154373200) Active 003 Condition May 18, 2005 Entered By: MARIANNE HARLEY Comment: screening colonoscopy found diverticulosis only, 2002 [facility] Allergic reaction to bee sting Active Condition [facility] Allergic rhinitis * (ICD-9-CM 477.9) Active Condition [facility] Benign essential hypertension (SNOMED CT 9188526) Active Condition [facility] Exposure to potentially hazardous substance Active Condition Feb 09, 2024 Entered By: SOPHIE GARZA Comment: DOREEN Screening Snomed Code connected 05/11/23 [facility] Gilbert's Disease Active Condition [facility] Hyperlipidemia (SNOMED CT 00786238) Active Condition [facility] Marfan's syndrome (SNOMED CT 08768043) Active Condition Jul 28, 2010 Entered By: ELVIRA ANDRADE Comment: ECHO JUL 16: EF 60%; +LVH (Hypertensive Effect)Jul 28, 2010 Entered By: ELVIRA ANDRADE Comment: 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 Raised PSA Active Condition [facility] strong family history of Marfan, last Echo @2002, repeat 5 years. [facility] Supraventricular arrhythmia Active Condition [facility] Tear of medial cartilage or meniscus of knee, current (ICD-9-CM 836.0) Active Condition [facility] EKG Inactive Condition 05/29/2017 Jun 08, 2 010 Entered By: ELVIRA ANDRADE Comment: EKG, NOV 2006: NSRAug 2009 Entered By: ELVIRA ANDRADE Comment: EKG, JUN 15: Sinus John [facility] Impaired fasting glucose (SNOMED CT 247577220) Inactive Condition 05/29/[address] [address] Smith Inactive Condition 05/29/2017 [facility] Diagnosis: ICD-10-CM D18.00 Hemangioma unspecified site [facility] Diagnosis: ICD-10-CM D48.5 Neoplasm of uncertain behavior of skin Active Diagnosis [facility] [place] [facility] Diagnosis: ICD-10-CM L82.1 Other seborrheic keratosis Active Diagnosis [facility] Diagnosis: ICD-10-CM Z13.89 Encounter for screening for other disorder Active Diagnosis [facility] Diagnosis: ICD-10-CM E66.9 Obesity, unspecified Active Diagnosis [facility] Diagnosis: ICD-10-CM Z77.29 Contact with and exposure to other hazardous substances Active Diagnosis [facility] Medications Combined list of outpatient medications from Department of Defense and Veterans Affairs facilities.Medications provided include 1) outpatient medications from the last 15 months, and 2) patient-reported medications. Medication Details Route Status Patient Instructions Prescription Expires Prescription Number Last Dispense Date Ordering Provider Order Date Order Qty Source AMLODIPINE BESYLATE 10MG TAB TAKE ONE TABLET BY MOUTH ONCE DAILY FOR HEART/BL OOD PRESSURE . DO NOT TAKE WITH GRAPEFRU IT JUICE ORAL ACTIVE 05/21/2026 [id number] 5 JENNIFFER HURD 2024 90 [place] AMLODIPINE BESYLATE 10MG TAB TAKE ONE TABLET BY MOUTH ONCE DAILY FOR HEART/BL OOD PRESSURE . DO NOT TAKE WITH GRAPEFRU IT JUICE ORAL DISCONT INUED 05/15/2025 [id number] 5 JENNIFFER HURD 2023 90 [place] AMLODIPINE BESYLATE 10MG TAB TAKE ONE TABLET BY MOUTH EVERY DAY ORAL ACTIVE TATO,LESIA CUNNINGHAMMARY ANNE P 2017 Sharifa [facility] AMOXICILLIN TRIHYDRATE 500MG CAP TAKE FOUR CAPSULES BY MOUTH DIRECTED BY PROVIDER 1 HOUR PRIOR TO PROCEDUR E ORAL 09/19/2024 [id number] ELIOT TRIPLETT 2023 20 [place] ASPIRIN 325MG TAB,EC TAKE ONE TABLET BY MOUTH EVERY DAY ORAL ACTIVE SHEAR,LESIA HAEL P 2017 Sharifa [facility] ATORVASTATI N CA 40MG TAB TAKE ONE-HALF TABLET BY MOUTH ONCE DAILY FOR CHOLESTE ROL ORAL ACTIVE 05/21/2026 [id number] 5 JENNIFFER HURD M 2024 45 [place] ATORVASTATI N CA 40MG TAB TAKE ONE-HALF TABLET BY MOUTH ONCE DAILY FOR CHOLESTE ROL ORAL DISCONT INUED 05/15/2025 [id number] 5 JENNIFFER HURD 2023 45 [place] CHOLECALCIF CAMI 25MCG (1,000UNIT) TAB TAKE ONE TABLET BY MOUTH ONCE DAILY ORAL ACTIVE JENNIFFER HURD 2020 [place] EPINEPHRINE (EQV-EPI-PE N) 0.3MG/0.3ML INJECTOR INJECT DIRECTED INTRAMUS CULARLY EVERY 5 MINUTES NEEDED FOR LIFE THREATEN ING ALLERGIC REACTION INTRAM USCULA R ACTIVE 05/21/2026 [id number] 5 JENNIFFER HURD 2024 2 [place] EPINEPHRINE (EQV-EPI-PE N) 0.3MG/0.3ML INJECTOR INJECT DIRECTED INTRAMUS CULARLY EVERY 5 MINUTES NEEDED FOR LIFE THREATEN ING ALLERGIC REACTION INTRAM USCULA R DISCONT INUED 05/15/2025 [id number] 4 JENNIFFER HURD M 2023 2 [place] FLUTICASONE PROPIONATE 50MCG/SPRAY SOLN,NASAL, 16GM INSTILL 1 SPRAY INTO EACH NOSTRIL AT BEDTIME FOR NASAL IRRITATI ON/INFLA MMATION NASAL ACTIVE 05/21/2026 [id number] JENNIFFER HURD M 2024 1 [place] HYDROCHLORO THIAZIDE 12.5MG/LOSA RTAN POTASSIUM 100MG TAB TAKE 1 TABLET BY MOUTH ONCE DAILY ORAL ACTIVE 05/21/2026 [id number] 5 JENNIFFER HURD M 2024 90 [place] HYDROCHLORO THIAZIDE 12.5MG/LOSA RTAN POTASSIUM 100MG TAB TAKE 1 TABLET BY MOUTH ONCE DAILY ORAL DISCONT INUED 05/15/2025 [id number] 5 JENNIFFER HURD M 2023 90 [place] LOSARTAN POTASSIUM 100MG TAB TAKE ONE TABLET BY MOUTH EVERY DAY ORAL ACTIVE SHEAR,LESIA HAEL P 2017 Sharifa [facility] METOPROLOL SUCCINATE 100MG TAB,SA TAKE ONE-HALF TABLET BY MOUTH EVERY DAY ORAL ACTIVE SHEAR,LESIA HAEL P 2017 Sharifa [facility] METOPROLOL SUCCINATE 50MG TAB,SA TAKE ONE TABLET BY MOUTH TWICE DAILY FOR BLOOD PRESSURE /HEART ORAL ACTIVE 05/21/2026 [id number] 5 JENNIFFER HURD M 2024 180 [place] METOPROLOL SUCCINATE 50MG TAB,SA TAKE ONE TABLET BY MOUTH TWICE DAILY FOR BLOOD PRESSURE /HEART ORAL DISCONT INUED 05/15/2025 [id number] 5 JENNIFFER HURD M 2023 180 [place] SIMVASTATIN 40MG TAB TAKE ONE TABLET BY MOUTH DAILY AT BEDTIME ORAL ACTIVE SHEAR,LESIA HAEL P 2017 Sharifa [facility] SODIUM CHLORIDE 0.65% SOLN,NASAL SPRAY INSTILL 2 SPRAYS INTO EACH NOSTRIL EVERY 4 HOURS NEEDED FOR STUFFY NOSE NASAL ACTIVE 05/21/2026 [id number] JENNIFFER HURD [employer] 2024 45 [place] TAMSULOSIN HCL 0.4MG CAP TAKE ONE CAPSULE BY MOUTH ONCE DAILY ORAL SUSPEND ED 05/21/2026 [id number] 5 JENNIFFER HURD 2024 90 [place] TAMSULOSIN HCL 0.4MG CAP TAKE ONE CAPSULE BY MOUTH ONCE DAILY ORAL DISCONT INUED 05/07/2026 [id number] 5 JENNIFFER HURD 2024 90 [place] TAMSULOSIN HCL 0.4MG CAP TAKE ONE CAPSULE BY MOUTH ONCE DAILY ORAL DISCONT INUED 11/02/2025 [id number] FLOWER DINHJAVI R 2023 90 [place] TAMSULOSIN HCL 0.4MG CAP TAKE ONE CAPSULE BY MOUTH AT BEDTIME FOR ENLARGED PROSTATE ORAL 08/30/2024 [id number] ELIE DINH R 2022 90 [facility] ZINC 50MG (FROM SULFATE) CAP TAKE 1 CAPSULE BY MOUTH ONCE DAILY ORAL ACTIVE JENNIFFER HURD [employer] 2022 [place] Allergies, Adverse Reactions, Alerts Combined list of allergies from Department of Defense and Veterans Affairs facilities. It does not include entries that were removed or entered in error. Substance Category Reaction Severity Reaction type Status Date Reported Comments Source BEE STINGS Propensity to adverse reaction (finding) Itching active 8 [facility] Immunizations Combined list of available immunizations from the Department of Defense and Veterans Affairs facilities. Immunization Series Date Given Administered By Site Reaction Lot Number CVX Code Drug Assistant Film Editor Status Comments Source PNEUMOCOCCAL POLYSACCHARID E PPV23 2022 PRISCA NORTON LEFT DELTO ID [id number] 33 complet ed [facility] [place], [facility] COVID-19 (PFIZER), MRNA, LNP-S, BIVALENT BOOSTER, PF, 30 MCG/0.3 ML DOSE 1 2021 300 complet ed [facility] INFLUENZA, UNSPECIFIED FORMULATION 2021 88 complet ed [...] 88 complet ed [facility] FLU,3 YRS (HISTORICAL) 2015 88 complet [...] 33 complet ed Sharifa [facility] FLU,3 YRS (HISTORICAL) 2011 88 complet [...] May 13, 2025 10:35 AM Reporting Lab: [facility] [employer] [address] Performing Lab: [facility] [employer] [address] [facility] LIPID PANEL FASTING CHOLESTEROL [MASS/VOLUM E] IN SERUM OR PLASMA 115 mg/dL 05/13 Specimen Type: SERUM No comment entered. Ordering Provider: FARZANEH GONZALES Report Released Date/Time: May 13, 2025 08:18 AM Reporting Lab: [facility] MediaMAR[facility] [address] [facility] [address] Performing Lab: [facility] [address] [facility] [address] [place] LIPID PANEL FASTING TRIGLYCERID E [MASS/VOLUM E] IN SERUM OR PLASMA 84 mg/dL 0 - 150 05/13 Specimen Type: SERUM No comment entered. Ordering Provider: FARZANEH GONZALES Report Released Date/Time: May 13, 2025 08:18 AM Reporting Lab: [facility] [address] [facility] [address] Performing Lab: [address] [address] [place] LIPID PANEL FASTING CHOLESTEROL IN LDL [MASS/VOLUM E] IN SERUM OR PLASMA BY CALCULATION 58 mg/dL 0 - 129 05/13 Specimen Type: SERUM No comment entered. Ordering Provider: FARZANEH GONZALES Report Released Date/Time: May 13, 2025 08:18 AM Reporting Lab: [facility] [address] [facility] [address] Performing Lab: [address] [address] [place] LIPID PANEL FASTING CHOLESTEROL .TOTAL/CHOL ESTEROL IN HDL [MASS RATIO] IN SERUM OR PLASMA 2.9 05/13 Specimen Type: SERUM No comment entered. Ordering Provider: FARZANEH GONZALES Report Released Date/Time: May 13, 2025 08:18 AM Reporting Lab: [facility] [address] [facility] [address] Performing Lab: [facility] [address] [place] LIPID PANEL FASTING CHOLESTEROL IN HDL [MASS/VOLUM E] IN SERUM OR PLASMA 40 mg/dL 40 05/13 Specimen Type: SERUM No comment entered. Ordering Provider: FARZANEH GONZALES Report Released Date/Time: May 13, 2025 08:18 AM Reporting Lab: [facility] [address] [facility] [address] Performing Lab: [facility] [address] [facility] [address] [facility] LIVER FUNCTION PROTEIN [MASS/VOLUM E] IN SERUM OR PLASMA 6.7 g/dL 6.4 - 8.3 05/13 Specimen Type: SERUM No comment entered. Ordering Provider: FARZANEH GONZALES Report Released Date/Time: May 13, 2025 08:18 AM Reporting Lab: [facility] [address] [facility] [address] Performing Lab: [address] [address] [facility] LD LIVER FUNCTION ALBUMIN [MASS/VOLUM E] IN SERUM OR PLASMA BY BROMOCRESOL PURPLE (BCP) DYE BINDING METHOD 4.4 g/dL 3.2 - 4.6 05/13 Specimen Type: SERUM No comment entered. Ordering Provider: FARZANEH GONZALES Report Released Date/Time: May 13, 2025 08:18 AM Reporting Lab: [address] [address] Performing Lab: [address] [address] [facility] LIVER FUNCTION ALKALINE PHOSPHATASE [ENZYMATIC ACTIVITY/VO LUME] IN SERUM OR PLASMA 72 U/L 40 - 150 05/13 Specimen Type: SERUM No comment entered. Ordering Provider: FARZANEH GONZALES Report Released Date/Time: May 13, 2025 08:18 AM Reporting Lab: [address] [address] Performing Lab: [address] [address] [facility] LIVER FUNCTION ASPARTATE AMINOTRANSF ERASE [ENZYMATIC ACTIVITY/VO LUME] IN SERUM OR PLASMA BY WITH P-5'-P 15 U/L 5 - 34 05/13 Specimen Type: SERUM No comment entered. Ordering Provider: FARZANEH GONZALES Report Released Date/Time: May 13, 2025 08:18 AM Reporting Lab: [facility] [address] [facility] [address] Performing Lab: [facility] [address] [facility] [address] [place] LIVER FUNCTION ALANINE AMINOTRANSF ERASE [ENZYMATIC ACTIVITY/VO LUME] IN SERUM OR PLASMA BY WITH P-5'-P 9 U/L 0 - 55 05/13 Specimen Type: SERUM No comment entered. Ordering Provider: FARZANEH GONZALES Report Released Date/Time: May 13, 2025 08:18 AM Reporting Lab: [facility] [address] [address] Performing Lab: [facility] [address] [address] [place] LIVER FUNCTION BILIRUBIN.T OTAL [MASS/VOLUM E] IN SERUM OR PLASMA 2.0 mg/dL 0.2 - 1.2 05/13 H Specimen Type: SERUM No comment entered. Ordering Provider: FARZANEH GONZALES Report Released Date/Time: May 13, 2025 08:18 AM Reporting Lab: [facility] [address] [facility] [address] Performing Lab: [facility] TRN [facility] [address] [place] LIVER FUNCTION BILIRUBIN.D IRECT [MASS/VOLUM E] IN SERUM OR PLASMA 0.4 mg/dL 0 - 0.5 05/13 Specimen Type: SERUM No comment entered. Ordering Provider: FARZANEH GONZALES Report Released Date/Time: May 13, 2025 08:18 AM Reporting Lab: [facility] [address] Performing Lab: [facility] TRN [address] [address] [place] BASIC METABOLIC PANEL (fasting) UREA NITROGEN [MASS/VOLUM E] IN SERUM OR PLASMA 18 mg/dL 8 - 26 05/13 Specimen Type: SERUM No comment entered. Ordering Provider: FARZANEH GONZALES Report Released Date/Time: May 13, 2025 08:18 AM Reporting Lab: [facility] [address] [facility] [address] Performing Lab: [facility] [address] [facility] [address] [place] BASIC METABOLIC PANEL (fasting) GLUCOSE [MASS/VOLUM E] IN SERUM OR PLASMA 101 mg/dL 65 - 100 05/13 H Specimen Type: SERUM No comment entered. Ordering Provider: FARZANEH GONZALES Report Released Date/Time: May 13, 2025 08:18 AM Reporting Lab: [facility] [address] [address] Performing Lab: [facility] [address] [address] [place] BASIC METABOLIC PANEL (fasting) SODIUM [MOLES/VOLU ME] IN SERUM OR PLASMA 141 mmol/L 136 - 145 05/13 Specimen Type: SERUM No comment entered. Ordering Provider: FARZANEH GONZALES Report Released Date/Time: May 13, 2025 08:18 AM Reporting Lab: [facility] [address] [address] Performing Lab: [facility] [address] [address] [place] BASIC METABOLIC PANEL (fasting) POTASSIUM [MOLES/VOLU ME] IN SERUM OR PLASMA 4.5 mmol/L 3.5 - 5.1 05/13 Specimen Type: SERUM No comment entered. Ordering Provider: FARZANEH GONZALES Report Released Date/Time: May 13, 2025 08:18 AM Reporting Lab: [facility] [address] [address] Performing Lab: [facility] [address] [address] [place] BASIC METABOLIC PANEL (fasting) CHLORIDE [MOLES/VOLU ME] IN SERUM OR PLASMA 105 mmol/L 98 - 107 05/13 Specimen Type: SERUM No comment entered. Ordering Provider: FARZANEH GONZALES Report Released Date/Time: May 13, 2025 08:18 AM Reporting Lab: [facility] [address] [address] Performing Lab: [facility] [place] [address] [place], [place] [address] BASIC METABOLIC PANEL (fasting) CARBON DIOXIDE, TOTAL [MOLES/VOLU ME] IN SERUM OR PLASMA 28 meq/L 23 - 31 05/13 Specimen Type: SERUM No comment entered. Ordering Provider: FARZANEH GONZALES Report Released Date/Time: May 13, 2025 08:18 AM Reporting Lab: [facility] [place] [address] Performing Lab: [facility] [address] [address] [place] BASIC METABOLIC PANEL (fasting) CALCIUM [MASS/VOLUM E] IN SERUM OR PLASMA 8.7 mg/dL 8.8 - 10 05/13 L Specimen Type: SERUM No comment entered. Ordering Provider: FARZANEH GONZALES Report Released Date/Time: May 13, 2025 08:18 AM Reporting Lab: [facility] [address] Performing Lab: [facility] [address] [place] BASIC METABOLIC PANEL (fasting) CREATININE [MASS/VOLUM E] IN SERUM OR PLASMA 1.22 mg/dL 0.72 - 1.25 05/13 Specimen Type: SERUM No comment entered. Ordering Provider: FARZANEH GONZALES Report Released Date/Time: May 13, 2025 08:18 AM Reporting Lab: [facility] [address] Performing Lab: [facility] [address] [facility] [address] [place] [facility] BASIC METABOLIC PANEL (fasting) GLOMERULAR FILTRATION RATE/1.73 SQ M.PREDICTED [VOLUME RATE/AREA] IN SERUM, PLASMA OR BLOOD BY CREATININE- BASED FORMULA (CKD-EPI 2020) 60 mL/min 60 05/13 Specimen Type: SERUM No comment entered. Ordering Provider: FARZANEH GONZALES Report Released Date/Time: May 13, 2025 08:18 AM Reporting Lab: [address] [address] Performing Lab: [address] [address] [facility] HEMOGLOBI N A1C PANEL HEMOGLOBIN A1C/HEMOGLO BIN.TOTAL [...] May 13, 2025 08:18 AM Reporting Lab: [address] [address] Performing Lab: [address] [address] [place] TSH THYROTROPIN [UNITS/VOLU ME] IN SERUM OR PLASMA BY DETECTION LIMIT <= 0.005 MIU/L 1.53 u[IU]/ mL 0.35 - 4.94 05/13 Specimen Type: SERUM No comment entered. Ordering Provider: FARZANEH GONZALES Report Released Date/Time: May 13, 2025 08:18 AM Reporting Lab: [address] [place] [address] Performing Lab: [facility] [address] [facility] [address] [place] CBC AND DIFF (AUTO) LEUKOCYTES [#/VOLUME] IN BLOOD BY AUTOMATED COUNT 5.49 10*3/u L 4.50 - 11.00 05/13 Specimen Type: BLOOD No comment entered. Ordering Provider: FARZANEH GONZALES Report Released Date/Time: May 13, 2025 08:18 AM Reporting Lab: [facility]N [facility] [address] [address] Performing Lab: [facility] [address] [place] CBC AND DIFF (AUTO) ERYTHROCYTE S [#/VOLUME] IN BLOOD BY AUTOMATED COUNT 4.04 10*6/u L 4.23 - 5.66 05/13 L Specimen Type: BLOOD No comment entered. Ordering Provider: FARZANEH GONZALES Report Released Date/Time: May 13, 2025 08:18 AM Reporting Lab: [facility] [address] [address] Performing Lab: [facility] [address] [address] [place] CBC AND DIFF (AUTO) HEMOGLOBIN [MASS/VOLUM E] IN BLOOD 13.3 g/dL 12.8 - 17 05/13 Specimen Type: BLOOD No comment entered. Ordering Provider: FARZANEH GONZALES Report Released Date/Time: May 13, 2025 08:18 AM Reporting Lab: [facility] [address] [address] Performing Lab: [facility] [address] [address] [place] CBC AND DIFF (AUTO) HEMATOCRIT [VOLUME FRACTION] OF BLOOD BY AUTOMATED COUNT 38.3 39.2 - 50.4 05/13 L Specimen Type: BLOOD No comment entered. Ordering Provider: FARZANEH GONZALES Report Released Date/Time: May 13, 2025 08:18 AM Reporting Lab: [facility] [place] [facility] [address] [facility] [address] Performing Lab: [facility] [place] [facility] [address] [facility] [address] [place] CBC AND DIFF (AUTO) MCV [ENTITIC VOLUME] BY AUTOMATED COUNT 94.8 fL 82 - 99 05/13 Specimen Type: BLOOD No comment entered. Ordering Provider: FARZANEH GONZALES Report Released Date/Time: May 13, 2025 08:18 AM Reporting Lab: [facility] [place] [address] [address] Performing Lab: [facility] [address] [address] [place] CBC AND DIFF (AUTO) MCHC [MASS/VOLUM E] BY AUTOMATED COUNT 34.7 g/dL 30.8 - 35.1 05/13 Specimen Type: BLOOD No comment entered. Ordering Provider: FARZANEH GONZALES Report Released Date/Time: May 13, 2025 08:18 AM Reporting Lab: [facility] [place] [facility] [address] [facility] [address] Performing Lab: [facility] [place] [address] [address] [place] CBC AND DIFF (AUTO) PLATELETS [#/VOLUME] IN BLOOD BY AUTOMATED COUNT 189 10*3/u L 140 - 360 05/13 Specimen Type: BLOOD No comment entered. Ordering Provider: FARZANEH GONZALES Report Released Date/Time: May 13, 2025 08:18 AM Reporting Lab: [facility] [place] [facility] [address] [facility] [address] Performing Lab: [facility] [place] [address] [address] [place] CBC AND DIFF (AUTO) PLATELET MEAN VOLUME [ENTITIC VOLUME] IN BLOOD BY AUTOMATED COUNT 11.7 fL 9.2 - 12.4 05/13 Specimen Type: BLOOD No comment entered. Ordering Provider: FARZANEH GONZALES Report Released Date/Time: May 13, 2025 08:18 AM Reporting Lab: [facility] [place] [facility] [address] [facility] [address] Performing Lab: [facility] [place] [address] [address] [place] CBC AND DIFF (AUTO) ERYTHROCYTE DISTRIBUTIO N WIDTH [RATIO] BY AUTOMATED COUNT 12.8 12.0 - 16.0 05/13 Specimen Type: BLOOD No comment entered. Ordering Provider: FARZANEH GONZALES Report Released Date/Time: May 13, 2025 08:18 AM Reporting Lab: [facility] [place] [address] [address] Performing Lab: [facility] [place] [address] [address] [place] CBC AND DIFF (AUTO) MONOCYTES [#/VOLUME] IN BLOOD BY AUTOMATED COUNT 0.68 10*3/u L 0.30 - 1.10 05/13 Specimen Type: BLOOD No comment entered. Ordering Provider: FARZANEH GONZALES Report Released Date/Time: May 13, 2025 08:18 AM Reporting Lab: [facility] [place] [address] [address] Performing Lab: [facility] [place] [address] [address] [place] CBC AND DIFF (AUTO) MCH [ENTITIC MASS] BY AUTOMATED COUNT 32.9 pg 26.2 - 32.6 05/13 H Specimen Type: BLOOD No comment entered. Ordering Provider: FARZANEH GONZALES Report Released Date/Time: May 13, 2025 08:18 AM Reporting Lab: [facility] [place] [address] [address] Performing Lab: [facility] [place] [address] [address] [place] CBC AND DIFF (AUTO) NEUTROPHILS /100 LEUKOCYTES IN BLOOD BY AUTOMATED COUNT 55.2 43.7 - 75.8 05/13 Specimen Type: BLOOD No comment entered. Ordering Provider: FARZANEH GONZALES Report Released Date/Time: May 13, 2025 08:18 AM Reporting Lab: [facility] [place] [address] [address] Performing Lab: [facility] [place] [address] [address] [place] CBC AND DIFF (AUTO) LYMPHOCYTES /100 LEUKOCYTES IN BLOOD BY AUTOMATED COUNT 29.5 14.0 - 42.3 05/13 Specimen Type: BLOOD No comment entered. Ordering Provider: FARZANEH GONZALES Report Released Date/Time: May 13, 2025 08:18 AM Reporting Lab: [facility] [place] [address] [address] Performing Lab: [facility] [place] [address] [address] [place] CBC AND DIFF (AUTO) MONOCYTES/1 00 LEUKOCYTES IN BLOOD BY AUTOMATED COUNT 12.4 5.1 - 13.7 05/13 Specimen Type: BLOOD No comment entered. Ordering Provider: FARZANEH GONZALES Report Released Date/Time: May 13, 2025 08:18 AM Reporting Lab: [facility] [place] [address] [address] Performing Lab: [facility] [address] [address] [place] CBC AND DIFF (AUTO) EOSINOPHILS /100 LEUKOCYTES IN BLOOD BY AUTOMATED COUNT 2.0 0.4 - 6.8 05/13 Specimen Type: BLOOD No comment entered. Ordering Provider: FARZANEH GONZALES Report Released Date/Time: May 13, 2025 08:18 AM Reporting Lab: [facility] [address] [address] Performing Lab: [facility] [address] [place] CBC AND DIFF (AUTO) BASOPHILS/1 00 LEUKOCYTES IN BLOOD BY AUTOMATED COUNT 0.7 0.1 - 2.0 05/13 Specimen Type: BLOOD No comment entered. Ordering Provider: FARZANEH GONZALES Report Released Date/Time: May 13, 2025 08:18 AM Reporting [facility] [address] [address] Performing [facility]: [facility] [address] [address] [place] CBC AND DIFF (AUTO) NEUTROPHILS [#/VOLUME] IN BLOOD BY AUTOMATED COUNT 3.03 10*3/u L 2.20 - 7.60 05/13 Specimen Type: BLOOD No comment entered. Ordering Provider: FARZANEH GONZALES Report Released Date/Time: May 13, 2025 08:18 AM Reporting [facility]: [facility] [address] [address] Performing Lab: [facility] [address] [address] [place] CBC AND DIFF (AUTO) LYMPHOCYTES [#/VOLUME] IN BLOOD BY AUTOMATED COUNT 1.62 10*3/u L 1.00 - 3.20 05/13 Specimen Type: BLOOD No comment entered. Ordering Provider: FARZANEH GONZALES Report Released Date/Time: May 13, 2025 08:18 AM Reporting Lab: [facility] [address] [address] Performing Lab: [address] [address] [place] CBC AND DIFF (AUTO) EOSINOPHILS [#/VOLUME] IN BLOOD BY AUTOMATED COUNT 0.11 10*3/u L 0.03 - 0.44 05/13 Specimen Type: BLOOD No comment entered. Ordering Provider: FARZANEH GONZALES Report Released Date/Time: May 13, 2025 08:18 AM Reporting Lab: [facility] [place] [address] [address] Performing Lab: [facility] [place] [facility] [address] [facility] [address] [place] CBC AND DIFF (AUTO) BASOPHILS [#/VOLUME] IN BLOOD BY AUTOMATED COUNT 0.04 10*3/u L 0.01 - 0.13 05/13 Specimen Type: BLOOD No comment entered. Ordering Provider: FARZANEH GONZALES Report Released Date/Time: May 13, 2025 08:18 AM Reporting Lab: [facility] [address] [address] Performing Lab: [facility] [address] [address] [place] CBC AND DIFF (AUTO) IMMATURE GRANULOCYTE S/100 LEUKOCYTES IN BLOOD BY AUTOMATED COUNT 0.2 0.0 - 0.7 05/13 Specimen Type: BLOOD No comment entered. Ordering Provider: FARZANEH GONZALES Report Released Date/Time: May 13, 2025 08:18 AM Reporting Lab: [facility] [address] [address] Performing Lab: [facility] [address] [address] [place] CBC AND DIFF (AUTO) IMMATURE GRANULOCYTE S [#/VOLUME] IN BLOOD BY AUTOMATED COUNT 0.01 10*3/u L 0.00 - 0.06 05/13 Specimen Type: BLOOD No comment entered. Ordering Provider: FARZANEH GONZALES Report Released Date/Time: May 13, 2025 08:18 AM Reporting Lab: [facility] [place] [address] [address] Performing Lab: [facility] [address] [address] [place] CBC AND DIFF (AUTO) NUCLEATED ERYTHROCYTE S/100 LEUKOCYTES [RATIO] IN BLOOD BY AUTOMATED COUNT 0.0 0.0 - 0.0 05/13 Specimen Type: BLOOD No comment entered. Ordering Provider: FARZANEH GONZALES Report Released Date/Time: May 13, 2025 08:18 AM Reporting Lab: [facility] [address] [facility] [address] Performing Lab: [address] [address] [place] CBC AND DIFF (AUTO) NUCLEATED ERYTHROCYTE S [#/VOLUME] IN BLOOD BY AUTOMATED COUNT 0.00 10*3/u L 0.00 - 0.00 05/13 Specimen Type: BLOOD No comment entered. Ordering Provider: FARZANEH GONZALES Report Released Date/Time: May 13, 2025 08:18 AM Reporting Lab: [address] [address] Performing Lab: [address] [address] [place] PSA PROSTATE SPECIFIC AG [MASS/VOLUM E] IN SERUM OR PLASMA 7.78 ng/mL 0.00 - 4.00 06/07 H Specimen Type: SERUM No comment entered. Ordering Provider: FARZANEH GONZALES Report Released Date/Time: May 14, 2024 11:57 AM Reporting Lab: [address] [address] Performing Lab: [address] [address] [place] LIPID PANEL FASTING CHOLESTEROL [MASS/VOLUM E] IN SERUM OR PLASMA 129 mg/dL 05/06 Specimen Type: SERUM No comment entered. Ordering Provider: FARZANEH GONZALES Report Released Date/Time: May 01, 2024 10:09 AM Reporting Lab: [address] [address] Performing Lab: [address] [address] [place] LIPID PANEL FASTING TRIGLYCERID E [MASS/VOLUM E] IN SERUM OR PLASMA 97 mg/dL 0 - 150 05/06 Specimen Type: SERUM No comment entered. Ordering Provider: FARZANEH GONZALES Report Released Date/Time: May 01, 2024 10:09 AM Reporting Lab: [facility] [address] [facility] [address] Performing Lab: [facility] [address] [facility] [address] [place] LIPID PANEL FASTING CHOLESTEROL IN LDL [MASS/VOLUM E] IN SERUM OR PLASMA BY CALCULATION 63 mg/dL 0 - 129 05/06 Specimen Type: SERUM No comment entered. Ordering Provider: FARZANEH GONZALES Report Released Date/Time: May 01, 2024 10:09 AM Reporting Lab: [address] [address] Performing Lab: [address] [address] [place] LIPID PANEL FASTING CHOLESTEROL .TOTAL/CHOL ESTEROL IN HDL [MASS RATIO] IN SERUM OR PLASMA 2.7 05/06 Specimen Type: SERUM No comment entered. Ordering Provider: FARZANEH GONZALES Report Released Date/Time: May 01, 2024 10:09 AM Reporting Lab: [address] [address] Performing Lab: [address] [address] [place] LIPID PANEL FASTING CHOLESTEROL IN HDL [MASS/VOLUM E] IN SERUM OR PLASMA 47 mg/dL 40 - 60 05/06 Specimen Type: SERUM No comment entered. Ordering Provider: FARZANEH GONZALES Report Released Date/Time: May 01, 2024 10:09 AM Reporting Lab: [address] [address] Performing Lab: [address] [address] [place] BASIC METABOLIC PANEL (fasting) UREA NITROGEN [MASS/VOLUM E] IN SERUM OR PLASMA 17 mg/dL 7 - 25 05/06 Specimen Type: SERUM No comment entered. Ordering Provider: FARZANEH GONZALES Report Released Date/Time: May 01, 2024 10:09 AM Reporting Lab: [facility] [address] [facility] [address] Performing Lab: [address] [address] [place] BASIC METABOLIC PANEL (fasting) GLUCOSE [MASS/VOLUM E] IN SERUM OR PLASMA 97 mg/dL 65 - 100 05/06 Specimen Type: SERUM No comment entered. Ordering Provider: FARZANEH GONZALES Report Released Date/Time: May 01, 2024 10:09 AM Reporting Lab: [address] [address] Performing Lab: [facility] [address] [address] [place] BASIC METABOLIC PANEL (fasting) SODIUM [MOLES/VOLU ME] IN SERUM OR PLASMA 141 mmol/L 135 - 145 05/06 Specimen Type: SERUM No comment entered. Ordering Provider: FARZANEH GONZALES Report Released Date/Time: May 01, 2024 10:09 AM Reporting Lab: [address] [address] Performing [facility]: [facility] [address] [address] [place] BASIC METABOLIC PANEL (fasting) POTASSIUM [MOLES/VOLU ME] IN SERUM OR PLASMA 4.3 mmol/L 3.5 - 5.0 05/06 Specimen Type: SERUM No comment entered. Ordering Provider: FARZANEH GONZALES Report Released Date/Time: May 01, 2024 10:09 AM Reporting Lab: [address] [address] Performing Lab: [facility] [address] [facility] [address] [place] BASIC METABOLIC PANEL (fasting) CHLORIDE [MOLES/VOLU ME] IN SERUM OR PLASMA 106 mmol/L 100 - 110 05/06 Specimen Type: SERUM No comment entered. Ordering Provider: FARZANEH GONZALES Report Released Date/Time: May 01, 2024 10:09 AM Reporting Lab[facility] [address] [facility] [address] Performing Lab: [address] [address] [place] BASIC METABOLIC PANEL (fasting) CARBON DIOXIDE, TOTAL [MOLES/VOLU ME] IN SERUM OR PLASMA 25 meq/L 20 - 30 05/06 Specimen Type: SERUM No comment entered. Ordering Provider: FARZANEH GONZALES Report Released Date/Time: May 01, 2024 10:09 AM Reporting Lab[facility] [address] [facility] [address] Performing Lab: [address] [address] [place] BASIC METABOLIC PANEL (fasting) CREATININE [MASS/VOLUM E] IN SERUM OR PLASMA 1.18 mg/dL 0.50 - 1.40 05/06 Specimen Type: SERUM No comment entered. Ordering Provider: FARZANEH GONZALES Report Released Date/Time: May 01, 2024 10:09 AM Reporting Lab: [facility] [address] [facility] [address] Performing Lab: [address] [address] [place] BASIC METABOLIC PANEL (fasting) GLOMERULAR FILTRATION RATE/1.73 SQ M.PREDICTED [VOLUME RATE/AREA] IN SERUM, PLASMA OR BLOOD BY CREATININE- BASED FORMULA (CKD-EPI 2020) 62 mL/min 60 05/06 Specimen Type: SERUM No comment entered. Ordering Provider: FARZANEH GONZALES M Report Released Date/Time: May 01, 2024 10:09 AM Reporting Lab: [facility] [address] [facility] [address] Performing Lab: [facility] [address] [facility] [address] [facility] Vital Signs Combined list of inpatient and [...] 0 06/10/2025 09:48:11 [facility] TEMPERATURE 98 06/10/2025 09:48:11 [facility] PULSE 71 06/10/2025 09:48:11 [facility] RESPIRATION 18 06/10/2025 09:48:11 [facility] [place] [facility] SYSTOLIC BLOOD PRESSURE 132 05/20/20 25 08:57:23 [facility] DIASTOLIC BLOOD PRESSURE 73 025 08:57:23 [facility] PULSE OXIMETRY 99 % 05/20/2025 08:57:23 [facility] WEIGHT 251.6 05/20/2025 08:57:23 [facility] BMI 31 kg/m2 05/20/2025 08:57:23 [facility] TEMPERATURE 97.7 05/20/2025 08:57:23 [facility] PULSE 60 05/20/2025 08:57:23 [facility] Encounters Combined list of: 1) Encounters from Department of Veterans Affairs facilities going backup to the last 18 months, not all [place] inpatient encounters are included; 2) Encounters from the Department of Defense facilities going backup to 280 months. Location Location Details Encounter Type Encounter Number Reason For Visit Attending Provider ADM Date DC Date Status Disposition Source [facility] Outpatient Encounter [id number] 05/10 [facility] [place] [facility] Outpatient Encounter [id number] Diagnos is: ICD-10- CM E66.9 Obesity , unspeci fied VERÓNICA PERDUE M 05/14 [facility] [place] [facility] Outpatient Encounter [id number] 06/04 [facility] [place] [facility] [place] [facility] Outpatient Encounter [id number] 06/07 [place] [facility] [place] [facility] [place] [facility] NQHP OL DIG ASSMT&MGMT 5-10 [id number]. Diagnos is: ICD-10- CM Z77.29 Contact with and exposur e to other hazardo us substan alla SONICOLASA,CH RISTY A 05/05 [facility] [place] [facility] OFFICE O/P EST HI 40 MIN [id number] Diagnos is: ICD-10- CM E66.9 Obesity , unspeci fied VERÓNICA PERDUE M 05/[address] [facility] UNLISTED SPEC DERM SVC/PX [id number] Diagnos is: ICD-10- CM Z13.89 Encount er for screeni ng for other disorde r [facility] Outpatient Encounter [id number] Diagnos is: ICD-10- CM L82.1 Other seborrh eic keratos is SERA BONILLA 05/23 [facility] Out[facility] Encounter [id number] 05/23 [facility] En[facility] [id number] 05/23 [facility] En[facility] [id number] 05/30 [facility] OFF/OP CNSLTJ NEW/EST LOW 30 [id number] Diagnos is: ICD-10- CM D48.5 Neoplas m of uncerta in behavio r of skin KM DAVIS S 06/10 [facility] En[facility] [id number] 06/10 [facility] Encounter [id number] JULIAN JOHNS MD 06/12 [facility] OFF/OP EST MAY X REQ PHY/QHP [id number] Diagnos is: ICD-10- CM D18.00 Hemangi karla unspeci fied site MARIZA CASTORENA 06/17 [facility] En[facility] [id number] 06/24 [facility] Social History Combined list of available smoking, tobacco, and other social history from Department of Defense and Veterans Affairs facilities. Social History Type Response Date Comment Source Tobacco smoking status [facility]-TOBACCO USE FORMER CIGARETTES 05/20/2025 [facility] History of tobacco use [place]-TO[place]ACCO NEVER USED OTHER TYPE 05/20/2025 [facility] History of tobacco use [facility]-TOBACCO FORMER USER 05/10/2024 [facility] [place] [facility] History of tobacco use VA-TOBACCO FORMER USER 08/25/2022 [facility] [place] History of tobacco use [facility]-TOBACCO FORMER USER 08/24/2021 [facility] History of tobacco use [place]-TOBACCO QUIT 15 YRS OR MORE 06/04/2020 [facility] History of tobacco use [place]-TOBACCO QUIT 15 YRS OR MORE 05/29/2018 [facility] History of tobacco use QUIT TOBACCO USE 1-7 YEARS AGO 05/29/2018 30 yrs ago [facility] History of tobacco use LIFETIME NON TOBACCO USER 12/14/2017 Sharifa RUELAS [facility] History of tobacco use QUIT TOBACCO USE > 7 YEARS AGO 05/23/2017 [facility] History of tobacco use QUIT TOBACCO USE > 7 YEARS AGO 02/23/2016 quit 35 yrs ago, smoker age [age], max 1.5 ppd [facility] History of tobacco use QUIT TOBACCO USE > 7 YEARS AGO 06/08/2010 quit 27 years ago [facility] History of tobacco use QUIT TOBACCO USE 1-7 YEARS AGO 05/01/2006 none for > 20 years [facility] History of tobacco use CURRENT SMOKER 05/18/2005 [facility] History of tobacco use HISTORY OF SMOKING 06/07/2004 Quit 22 years ago [facility] Plan of Care List of future care activities from [facility] facilities. Additional future care activities may be listed in the Assessment and Plan section. Date/Time Care Activity Care Activity Detail Facili ty 05/20/2025 Consult Order COMMUNITY CARE-UROLOGY Cons Manufacturing Helper's Choice [facility] Advance Directives List of completed, amended, or rescinded Advance Directives on record at [facility] facilities. An actual copy of the Directive is not included. Date Advance Directive Provider Source 09/03/2021 ADVANCE DIRECTIVE LAURI BOWDEN
--- NOTE | 2025-06-26 13:19 | MHC.OFFVIS ---
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 Allergy (Unknown, Uncoded 03/12/20 00:00) Medication List - Last Reconciled 06/26/25 by Khanh Saravia MD amlodipine 10 mg PO DAILY atorvastatin 20 mg PO BEDTIME cholecalciferol (vitamin D3) 25 mcg PO DAILY losartan-hydrochlorothiazide 100-12.5 mg 1 tab PO DAILY metoprolol succinate ER 50 mg PO BID zinc acetate 50 mg PO DAILY HPI Comments Details: Bryson comes for follow-up. He has been doing very well from cardiac perspective. His most recent echocardiogram surprisingly did not show any ascending aortic enlargement. This might be a technical issue related to images obtained. He has clear ascending aortic enlargement by prior echocardiogram. He denies any exertional chest pain or shortness of breath. Still plays round of golf. Denies any prolonged palpitation irregular heartbeat. No lightheadedness, syncope. No orthopnea, PND, leg edema. Takes his medications religiously. [facility] Medical History (Updated 06/26/25 @ 13:49 by Khanh Saravia MD) Failed total knee, right Paroxysmal atrial tachycardia Marfan syndrome Hyperlipemia Arthritis HTN (hypertension) Surgical History Hx of colonoscopy Family History Father No problems noted. Mother No problems noted. Review of Systems Const Denies chills, Denies fatigue, Denies fever(s), Denies frequent falls, Denies weakness, Denies weight gain and Denies weight loss ENT Denies dizziness Card Denies chest pain, Denies leg edema, Denies lightheadedness, Denies palpitations, Denies dyspnea, Denies dyspnea on exertion, Denies orthopnea and Denies other (loss of consciousness) Resp Denies cough, Denies dyspnea and Denies dyspnea on exertion GI Denies hematochezia and Denies change in stool character Musc Denies abnormal gait, Denies muscle weakness, Denies numbness, Denies radiating pain into limb and Denies tingling Neuro Denies abnormal gait, Denies dizziness, Denies frequent falls, Denies numbness, Denies tingling and Denies weakness Endo Denies fatigue and Denies palpitations Physical Exam Vital Signs: Last Vital Signs Pulse 50 06/26/25 13:21 BP 110/64 06/26/25 13:21 BMI result Body Mass Index 30.3 Const General: cooperative, comfortable, no acute distress, alert and awake Nutritional Appearance: overweight Orientation/consciousness: patient oriented x3 Limitations: no limitations Neck Neck: Yes trachea midline, Yes supple and Yes no JVD Resp Effort & Inspection: normal respiratory effort Auscultation: clear to auscultation bilaterally Cardio Jugular venous distension: no JVD Palpation: normal PMI Rate: regular rate Rhythm: regular rhythm Heart sounds: S1 normal heart sound present and S2 normal heart sound present GI Auscultation: normal bowel sounds Skin General skin exam: no rashes or lesions noted Neuro General: patient oriented x3 and no focal motor deficits Extrem General: Yes no clubbing, cyanosis or edema Psych Appearance: grossly normal Office Procedures EKG Details: EKG shows sinus bradycardia with PACs with first-degree AV block 63186-[id number], Complete Assessment & Plan Assessment & Plan (1) Paroxysmal atrial tachycardia: Code(s): I47.1 - Supraventricular tachycardia Category: Medical Plan: Paroxysmal atrial tachycardia which is suppressed on metoprolol therapy. He was doing quite well from that perspective. Continue metoprolol therapy. Avoidance of stimulants was discussed. Advised to call me with recurrent symptoms. No change in other management. (2) HTN (hypertension): Code(s): I10 - Essential (primary) hypertension Category: Medical Plan: Hypertension which is currently well optimized. He is on multiple medications to control blood pressure. Continue the same. Compliance with medication was discussed. Target goal blood pressure less than 130/84. Low-salt diet was discussed. Encouraged to maintain activity level as tolerated. (3) Ascending aorta enlargement: Code(s): I77.89 - Other specified disorders of arteries and arterioles Category: Medical Plan: Ascending aortic enlargement which by prior echocardiogram was mild. Recent echocardiogram does not show any enlargement which would be I think it technical error. He will follow-up echocardiogram in 1 year's time. Management was discussed and includes aggressive blood pressure control as well as aggressive lipid management. Goal LDL less than 100 mg/dL. Continue maintain activity level as tolerated. Will follow up in the clinic in 1 year's time, sooner p.r.n.. Thank you for allowing me to partake in his care Coding Level of Care Code Est Pt Level 4 (57276) Complex EM visit Add On G2211 Diagnoses Paroxysmal atrial tachycardia I47.1 HTN (hypertension) I10 Ascending aorta enlargement I77.89 CPT Codes EKG - CPT: 81405-[id number], Complete ([id number])
[2025-06-26 13:21] VITALS: BP 110/64; PULSE 50; BMI 30.3
--- OUTSIDE RECORDS SUMMARY | 2025-06-26 13:21 | XMS_ITS | Patient Health Record ---
Author Organization [facility] Address [address] [place] [address] Care Team Providers Care Store Custodian Name Role Phone Madhuri Myles MD Primary Care Provider Fransisco Cespedes Jr Unavailable [phone] Allergies Allergen (clinical drug ingredient) Drug/Non Drug [...] Problem Status W/U Status Risk Notes Problem [id number] Colon cancer screening (Z12.11) Active confirmed Problem [id number] Encounter for other preprocedural examination (Z01.818) Active confirmed Plan Of Treatment Future Test Test Name Order Date COLONOSCOPY 08/03/2020 Insurance Providers Payer Name Payer Address Payer Phone Subscriber Number Group Number Insured Name Patient Relationship to Insured Coverage Start Date Coverage End Date [facility] MEDICARE COMPLETE [address] [place] [address] [id number] CASTRO WEBB Self - patient is the insured Medical (General) History Medical History History ICD Code hypertension Arthritis elevated cholesterol Marfan's syndrome SVT/PAT Surgical History Surgery Date(Month/Year)
== END 2025-06-26 13:46 | disposition home or self-care (01) ==
LOC: HO.HCS 13:09
PROVIDERS: PCP Internal Medicine; Visit Provider Internal Medicine Cardiovascular Disease
DX: I47.10 Supraventricular tachycardia, unspecified (principal); I10 Essential (primary) hypertension; I77.89 Other specified disorders of arteries and arterioles
CPT/HCPCS: 93010; 99214; G2211

== ENCOUNTER → 2025-06-26 13:08 | Outpatient (BNVA) | payer MEDICARE, SELFPAY | PROVIDERS: PCP Internal Medicine; Visit Provider Internal Medicine Cardiovascular Disease | DX: I47.19 Other supraventricular tachycardia (principal); I10 Essential (primary) hypertension; I77.89 Other specified disorders of arteries and arterioles | CPT/HCPCS: 93005; 99212 ==